=== PATIENT | male | born 1945 ===

== ENCOUNTER 2017-06-24 10:31 | Emergency (ER) | payer MEDICARE, OTHER ==
[2017-06-24 10:31] VITALS: BMI 24.3
[2017-06-24 10:36] VITALS: TEMP 98.6
--- NOTE | 2017-06-24 12:00 | C.PDOC ---
History Of Present Illness Sourav Avilez is a 71 year old male, with no past medical history, who presents to the emergency department complaining of left sided facial swelling and pain onset for x1 month. Patient states the pain is from midline to the left side of the face. He saw his PMD who recommended him to see an section leader. However, the section leader told him he had no visual problems and should visit the hospital. He denies any fever, chills, nausea, vomit or diarrhea. No further medical complaints. PMD: Dr Jv Melton Time Seen by Provider: 06/24/17 11:13 Chief Complaint (Nursing): Medical Clearance History Per: Patient History/Exam Limitations: no limitations Onset/Duration Of Symptoms: Days (x1 month) Current Symptoms Are (Timing): Still Present Pain Scale Rating Of: 5 Past Medical History Reviewed: Historical Data, Nursing Documentation, Vital Signs Vital Signs: Last Vital Signs Temp 98.6 F 06/24/17 10:36 Pulse 93 H 06/24/17 10:36 Resp 18 06/24/17 10:36 BP 162/74 H 06/24/17 10:36 Pulse Ox 97 06/24/17 13:02 - Medical History PMH: Gastritis, HTN, Hypercholesterolemia, Hypothyroidism, Parkinson's Disease Denies: Chronic Kidney Disease Surgical History: Hernia Repair Family History: States: Unknown Family Hx - Social History Hx Tobacco Use: Yes Hx Alcohol Use: No Hx Substance Use: No - Immunization History Hx Tetanus Toxoid Vaccination: No Hx Influenza Vaccination: Yes Hx Pneumococcal Vaccination: No Review Of Systems Except As Marked, All Systems Reviewed And Found Negative. Constitutional: Positive for: Other (left sided facial swelling and pain). Negative for: Fever, Chills Gastrointestinal: Negative for: Nausea, Vomiting, Diarrhea Physical Exam - Physical Exam Appears: No Acute Distress Skin: Normal Color, Warm, Dry Head: Atraumatic Eye(s): bilateral: Normal Inspection, PERRL, EOMI Neck: Normal ROM, Supple Cardiovascular: Rhythm Regular Respiratory: Normal Breath Sounds, No Accessory Muscle Use Gastrointestinal/Abdominal: Soft, No Tenderness, No Guarding, No Rebound Extremity: Normal ROM, No Pedal Edema, No Deformity, No Swelling Neurological/Psych: Oriented x3, Normal Speech, Normal Cognition, Normal Motor ( 5/5), Normal Sensation Other Neurological Findings: Facial Palsy (facial droop on left side) ED Course And Treatment O2 Sat by Pulse Oximetry: 97 (RA) Pulse Ox Interpretation: Normal - CT Scan/US CT - Head Other Rad Studies (CT/US): Read By Radiologist, Radiology Report Reviewed CT/US Interpretation: PROCEDURE: CT HEAD WITHOUT CONTRAST. HISTORY: left sided facial pain. COMPARISON: Noncontrast head CT performed 12/20/14. TECHNIQUE: Axial computed tomography images were obtained through the head/ brain without intravenous contrast. Radiation dose: Total exam DLP = 757.81 mGy-cm. This CT exam was performed using one or more of the following dose reduction techniques: Automated exposure control, adjustment of the mA and/or kV according to patient size, and/or use of iterative reconstruction technique. FINDINGS: HEMORRHAGE: No intracranial hemorrhage. BRAIN: Diffuse atrophy with prominence of the ventricles and sulci noted. No mass effect or edema. Intracranial atherosclerotic calcifications. Scattered periventricular and subcortical white matter hypodensities, which are nonspecific, but often seen with chronic microvascular ischemic disease. Please note that MRI with diffusion imaging is more sensitive in the detection of acute ischemic event. VENTRICLES: No hydrocephalus. CALVARIUM: Unremarkable. PARANASAL SINUSES: Unremarkable as visualized. No significant inflammatory changes. MASTOID AIR CELLS: Unremarkable as visualized. No inflammatory changes. OTHER FINDINGS: None. IMPRESSION: Generalized atrophy. Nonspecific white matter changes. Medical Decision Making Medical Decision Making: Initial Impression: left sided facial droop Initial Plan: --Head w/o contrast [CT] --reevaluation 12:[address] FINDINGS: HEMORRHAGE: No intracranial hemorrhage. BRAIN: Diffuse atrophy with prominence of the ventricles and sulci noted. No mass effect or edema. Intracranial atherosclerotic calcifications. Scattered periventricular and subcortical white matter hypodensities, which are nonspecific, but often seen with chronic microvascular ischemic disease. Please note that MRI with diffusion imaging is more sensitive in the detection of acute ischemic event. VENTRICLES: No hydrocephalus. CALVARIUM: Unremarkable. PARANASAL SINUSES: Unremarkable as visualized. No significant inflammatory changes. MASTOID AIR CELLS: Unremarkable as visualized. No inflammatory changes. OTHER FINDINGS: None. IMPRESSION: Generalized atrophy. Nonspecific white matter changes. Disposition Doctor Will See Patient In The: Office Counseled Patient/Family Regarding: Studies Performed, Need For Followup - Disposition Referrals: Lucho Boyd MD [Staff Provider] - Disposition Time: 14:29 Condition: STABLE Prescriptions: Ibuprofen [Motrin] 600 mg PO TID #15 tab Instructions: Munguia Palsy (ED) Forms: Gen Discharge Inst Scottish, [facility] (Scottish) - POA Present On Arrival: None - Clinical Impression Clinical Impression: Munguia's palsy - Scribe Statement Jose Antonio Bond Provider Attestation: All medical record entries made by the Scribe were at my direction and personally dictated by me. I have reviewed the chart and agree that the record accurately reflects my personal performance of the history, physical exam, medical decision making, and the department course for this patient. I have also personally directed, reviewed, and agree with the discharge instructions and disposition.
--- NOTE | 2017-06-24 12:28 | CT ---
PROCEDURE: CT HEAD WITHOUT CONTRAST. HISTORY: left sided facial pain COMPARISON: Noncontrast head CT performed 12/20/14 TECHNIQUE: Axial computed tomography images were obtained through the head/brain without intravenous contrast. Radiation dose: Total exam DLP = 757.81 mGy-cm. This CT exam was performed using one or more of the following dose reduction techniques: Automated exposure control, adjustment of the mA and/or kV according to patient size, and/or use of iterative reconstruction technique. FINDINGS: HEMORRHAGE: No intracranial hemorrhage. BRAIN: Diffuse atrophy with prominence of the ventricles and sulci noted. No mass effect or edema. Intracranial atherosclerotic calcifications. Scattered periventricular and subcortical white matter hypodensities, which are nonspecific, but often seen with chronic microvascular ischemic disease. Please note that MRI with diffusion imaging is more sensitive in the detection of acute ischemic event. VENTRICLES: No hydrocephalus. CALVARIUM: Unremarkable. PARANASAL SINUSES: Unremarkable as visualized. No significant inflammatory changes. MASTOID AIR CELLS: Unremarkable as visualized. No inflammatory changes. OTHER FINDINGS: None. IMPRESSION: Generalized atrophy. Nonspecific white matter changes.
[2017-06-24 14:43] VITALS: BP 168/77; PULSE 17; RESP 64; O2SAT 96
== END 2017-06-24 14:51 | disposition home or self-care (01) ==
LOC: C.ER 10:31
DX: G51.0 Bell's palsy (principal)

== ENCOUNTER 2017-08-25 14:10 | Emergency (ER) | payer MEDICARE, OTHER ==
[2017-08-25 14:11] VITALS: BMI 24.3
[2017-08-25 15:35] VITALS: RESP 18; TEMP 98.6; O2SAT 96
[2017-08-25 16:52] VITALS: BP 160/90; PULSE 61
--- NOTE | 2017-08-25 19:20 | C.PDOC ---
History Of Present Illness 71 y/o male presents to the ER complaining of non-productive cough,sore throat, and body aches which have been present for the past 4 days. Patient denies having any nausea and vomiting. Patient also denies any sick contacts and recent travel.Of note, patient is compliant with her medications. Chief Complaint (Nursing): Flu-like Symptoms History Per: Patient History/Exam Limitations: no limitations Current Symptoms Are (Timing): Still Present Sick Contacts (Context): None Associated Symptoms: Sore Throat, Cough. denies: Nausea, Vomiting Severity: Moderate Past Medical History Reviewed: Historical Data, Nursing Documentation, Vital Signs Vital Signs: Last Vital Signs Temp 98.6 F 08/25/17 16:35 Pulse 61 08/25/17 16:35 Resp 18 08/25/17 16:35 BP 160/90 H 08/25/17 16:35 Pulse Ox 96 08/25/17 19:24 - Medical History PMH: Gastritis, HTN, Hypercholesterolemia, Hypothyroidism, Parkinson's Disease Denies: Chronic Kidney Disease Surgical History: Hernia Repair Family History: States: No Known Family Hx - Social History Hx Tobacco Use: Yes Hx Alcohol Use: No Hx Substance Use: No - Immunization History Hx Tetanus Toxoid Vaccination: No Hx Influenza Vaccination: Yes Hx Pneumococcal Vaccination: No Review Of Systems Except As Marked, All Systems Reviewed And Found Negative. Constitutional: Positive for: Malaise ENT: Positive for: Throat Pain Respiratory: Positive for: Cough (non-productive cough) Gastrointestinal: Negative for: Nausea, Vomiting Physical Exam - Physical Exam Appears: Non-toxic, No Acute Distress Skin: Normal Color, Warm Head: Atraumatic, Normacephalic Eye(s): bilateral: Normal Inspection Ear(s): Bilateral: Normal Nose: Normal Oral Mucosa: Moist, Other (no thrush) Throat: Normal, No Erythema, No Exudate Neck: Supple Chest: Symmetrical Cardiovascular: Rhythm Regular Respiratory: Normal Breath Sounds, No Accessory Muscle Use, No Rales, No Rhonchi , No Wheezing Extremity: Normal ROM Neurological/Psych: Oriented x3, Normal Speech, Normal Motor, Normal Sensation ED Course And Treatment O2 Sat by Pulse Oximetry: 96 (RA) Pulse Ox Interpretation: Normal Progress Note: Patient discharged and told to follow up with PMD in 2-3 days. Disposition - Disposition Referrals: [facility] Angelita Knapp, [Non-Staff] - Disposition: HOME/ ROUTINE Disposition Time: 16:15 Condition: GOOD Additional Instructions: Thank you for letting us take care of you today. The emergency medical care you received today was directed at your acute symptoms. If you were prescribed any medication, please fill it and take as directed. It may take several days for your symptoms to resolve. Return to the Emergency Department if your symptoms worsen, do not improve, or if you have any other problems. Please contact your doctor or call one of the physicians/clinics you have been referred to that are listed on the Patient Visit Information form that is included in your discharge packet. Bring any paperwork you were given at discharge with you along with any medications you are taking to your follow up visit. Our treatment cannot replace ongoing medical care by a primary care provider (PCP) outside of the emergency department. Thank you for allowing the [facility] team to be part of your care today. Follow up with your doctor in 2-3 days for re-evaluation and further management. Tristin por dejarnos atenderlo santosy. La atencin mdica de emergencia que recibi hoy estaba dirigida a concha sntomas agudos. Si le prescribieron algn medicamento, llnelo y tome segn las indicaciones. Concah sntomas pueden tardar varios thornton en resolverse. Regrese al Departamento de Emergencia si concha s ntomas empeoran, no mejoran o si tiene algn otro problema. Comunquese con zarate mdico o llame a jaja de los mdicos / clnicas a los que chappell sido referido que figura en el formulario de Informacin de visita del paciente que se incluye en zarate paquete de caitlyn. Traiga todos los documentos que recibi al momento del caitlyn junto con los medicamentos que est tomando en zarate visita de seguimiento. Nuestro tratamiento no puede reemplazar la atencin mdica en curso por parte de un proveedor de atencin primaria (PCP) fuera del departamento de emergencias. Tristin por permitir que el equipo de [facility] sea parte de zarate cuidado hoy. Jimi un seguimiento con zarate mdico en 2-3 thornton para aby reevaluacin y aby administracin posterior. Instructions: Upper Respiratory Infection (ED) Forms: Gen Discharge Inst Hungarian Print Language: BENGALI - Clinical Impression Clinical Impression: Viral syndrome - Scribe Statement The provider has reviewed the documentation as recorded by the Scribe Lei Childress Provider Attestation: All medical record entries made by the Scribe were at my direction and personally dictated by me. I have reviewed the chart and agree that the record accurately reflects my personal performance of the history, physical exam, medical decision making, and the department course for this patient. I have also personally directed, reviewed, and agree with the discharge instructions and disposition.
== END 2017-08-25 16:35 | disposition home or self-care (01) ==
LOC: C.ER 14:10
DX: B34.9 Viral infection, unspecified (principal)

== ENCOUNTER 2017-08-28 10:17 | Inpatient (IN) | payer MEDICARE, OTHER ==
[2017-08-28 10:37] VITALS: BMI 25.0
[2017-08-28 13:26] LABS: BASO # 0.1 K/uL (0.0-0.2); BASO % 0.7 % (0.0-2.0); EOS # 0.1 K/uL (0.0-0.7); EOS % 1.2 % (0.0-4.0); HEMOGLOBIN 11.8 g/dL (12.0-18.0); LYMPH # 2.8 K/uL (1.0-4.3); LYMPH % 39.4 % (20.0-40.0); MEAN CORPUSCULAR HGB CONC 33.8 g/dL (33.0-37.0); MEAN PLATELET VOLUME 7.4 fL (7.2-11.7); MONO # 0.7 K/uL (0.0-0.8); NEUT # 3.4 K/uL (1.8-7.0); NEUT % 48.7 % (50.0-75.0); RBC 4.07 Mil/uL (4.40-5.90); RED CELL DISTRIBUTION WIDTH 16.1 % (11.5-14.5)
[2017-08-28 13:34] LABS: INR 1.2; PROTHROMBIN TIME 13.5 SECONDS (9.7-12.2)
[2017-08-28 13:38] LABS: WHITE BLOOD COUNT 7.1 K/uL (4.8-10.8)
[2017-08-28 13:47] LABS: ALB/GLOB RATIO 0.8 (1.0-2.1); ALBUMIN 4.1 g/dL (3.5-5.0); ALT/SGPT 13 U/L (21-72); AST/SGOT 36 U/L (17-59); BLOOD UREA NITROGEN 18 mg/dL (9-20); CALCIUM 10.2 mg/dl (8.6-10.4); GFR AFRICAN-AMERICAN 52; GFR NON-AFRICAN AMERICAN 43
--- NOTE | 2017-08-28 13:48 | CT ---
PROCEDURE: CT HEAD WITHOUT CONTRAST. HISTORY: double vision, headache COMPARISON: Noncontrast head CT performed 06/24/17 TECHNIQUE: Axial computed tomography images were obtained through the head/brain without intravenous contrast. Radiation dose: Total exam DLP = 930.34 mGy-cm. This CT exam was performed using one or more of the following dose reduction techniques: Automated exposure control, adjustment of the mA and/or kV according to patient size, and/or use of iterative reconstruction technique. FINDINGS: HEMORRHAGE: No intracranial hemorrhage. BRAIN: Diffuse atrophy with prominence of the ventricles and sulci noted. No mass effect or edema. Dense intracranial atherosclerosis. Scattered periventricular and subcortical white matter hypodensities, which are nonspecific, but often seen with chronic microvascular ischemic disease. Please note that MRI with diffusion imaging is more sensitive in the detection of acute ischemic event. VENTRICLES: No hydrocephalus. CALVARIUM: Unremarkable. PARANASAL SINUSES: Marked opacification of the left greater than right sphenoid sinuses. MASTOID AIR CELLS: Unremarkable as visualized. No inflammatory changes. OTHER FINDINGS: None. IMPRESSION: Generalized atrophy. Nonspecific white matter changes. Marked opacification of the left greater than right sphenoid sinuses. Correlate clinically for sinusitis.
[2017-08-28 13:52] LABS: CK-MB 1.46 ng/mL (0.0-3.38)
[2017-08-28 14:23] LABS: URINE BILIRUBIN NEGATIVE (NEGATIVE); URINE BLOOD NEGATIVE (NEGATIVE); URINE CLARITY Clear (Clear); URINE COLOR Yellow (YELLOW); URINE GLUCOSE (UA) NORMAL (Normal); URINE LEUKOCYTE ESTERASE NEG Leu/uL (Negative); URINE NITRATE NEGATIVE (NEGATIVE); URINE PROTEIN NEGATIVE (NEGATIVE); URINE UROBILINOGEN NORMAL mg/dL (0.2-1.0)
--- NOTE | 2017-08-28 14:47 | C.PDOC ---
History Of Present Illness 71 y/o male presents to the ER complaining of double vision which has been present for the past 2 days. Patient states that he has frontal headache and he has decreased sensation on the right side of his face.Patient reports that he was seen in [facility] 2 days ago for flu-like symptoms. Time Seen by Provider: 08/28/17 11:35 Chief Complaint (Nursing): Headache History Per: Patient History/Exam Limitations: no limitations Onset/Duration Of Symptoms: Days Current Symptoms Are (Timing): Still Present Severity: Moderate Past Medical History Reviewed: Historical Data, Nursing Documentation, Vital Signs Vital Signs: Last Vital Signs Temp 98.7 F 08/28/17 10:28 Pulse 64 08/28/17 17:30 Resp 17 08/28/17 17:30 BP 120/84 08/28/17 17:30 Pulse Ox 95 08/28/17 18:48 - Medical History PMH: Gastritis, HTN, Hypercholesterolemia, Hypothyroidism, Parkinson's Disease Denies: Chronic Kidney Disease Surgical History: Hernia Repair Family History: States: No Known Family Hx - Social History Hx Tobacco Use: Yes Hx Alcohol Use: No Hx Substance Use: No - Immunization History Hx Tetanus Toxoid Vaccination: No Hx Influenza Vaccination: Yes Hx Pneumococcal Vaccination: No Review Of Systems Except As Marked, All Systems Reviewed And Found Negative. Constitutional: Negative for: Fever, Chills Eyes: Positive for: Vision Change Neurological: Positive for: Headache Physical Exam - Physical Exam Appears: Non-toxic, No Acute Distress Skin: Normal Color, Warm Head: Atraumatic, Normacephalic Eye(s): bilateral: Normal Inspection Nose: Normal Oral Mucosa: Moist Neck: Supple Chest: Symmetrical Cardiovascular: Rhythm Regular Respiratory: Normal Breath Sounds, No Accessory Muscle Use, No Rales, No Rhonchi , No Wheezing Extremity: Normal ROM ED Course And Treatment - Laboratory Results Result Diagrams: 08/28/17 13:23 08/28/17 13:23 O2 Sat by Pulse Oximetry: 95 (RA) Pulse Ox Interpretation: Normal - Other Rad CXR X-Ray: Viewed By Me, Read By Radiologist Interpretation: HISTORY: double vision, headache. COMPARISON: Chest x-ray performed 06/13/14. TECHNIQUE: Chest, one view. FINDINGS: Examination limited by habitus. LUNGS: Mild bibasilar atelectasis/infiltrates. Please note that chest x-ray has limited sensitivity for the detection of pulmonary masses. PLEURA: No significant pleural effusion identified. No definite pneumothorax . 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 Cardiomegaly. OSSEOUS STRUCTURES: No acute osseous abnormality identified. VISUALIZED UPPER ABDOMEN: Elevation of the right hemidiaphragm. OTHER FINDINGS: None. IMPRESSION: Mild bibasilar atelectasis / infiltrates. 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 Cardiomegaly. - CT Scan/US Head CT Other Rad Studies (CT/US): Read By Radiologist CT/US Interpretation: PROCEDURE: CT HEAD WITHOUT CONTRAST. HISTORY: double vision, headache. COMPARISON: Noncontrast head CT performed 06/24/17. TECHNIQUE: Axial computed tomography images were obtained through the head/ brain without intravenous contrast. Radiation dose: Total exam DLP = 930.34 mGy-cm. This CT exam was performed using one or more of the following dose reduction techniques: Automated exposure control, adjustment of the mA and/or kV according to patient size, and/or use of iterative reconstruction technique. FINDINGS: HEMORRHAGE: No intracranial hemorrhage. BRAIN: Diffuse atrophy with prominence of the ventricles and sulci noted. No mass effect or edema. Dense intracranial atherosclerosis. Scattered periventricular and subcortical white matter hypodensities, which are nonspecific, but often seen with chronic microvascular ischemic disease. Please note that MRI with diffusion imaging is more sensitive in the detection of acute ischemic event. VENTRICLES: No hydrocephalus. CALVARIUM: Unremarkable. PARANASAL SINUSES: Marked opacification of the left greater than right sphenoid sinuses. MASTOID AIR CELLS: Unremarkable as visualized. No inflammatory changes. OTHER FINDINGS: None. IMPRESSION: Generalized atrophy. Nonspecific white matter changes. Marked opacification of the left greater than right sphenoid sinuses. Correlate clinically for sinusitis. MRI of brain Other Rad Studies (CT/US): Read By Radiologist, Radiology Report Reviewed CT/US Interpretation: EXAM: MR Head Without Intravenous Contrast. CLINICAL HISTORY: 71 years old, male; Signs and symptoms; Dizziness; Additional info: Double vision, r ptosis and facial. numbness/chappell. TECHNIQUE: Magnetic resonance images of the head/brain without intravenous contrast in multiple planes. COMPARISON: CT - HEAD W/O CONTRAST 2017-08-28 13:29. FINDINGS: Brain : No evidence of acute infarction. Mild to moderate brain volume loss. Mild periventricular and. subcortical T2 hyperintensities are nonspecific and could reflect chronic microvascular ischemic. changes. Bilateral frontal periventricular T2 hyperintensity/hyperintensities consistent with chronic. infarction(s). No hemorrhage. Ventricles: Unremarkable. No ventriculomegaly. Bones/joints: Unremarkable. Sinuses: Left sphenoid sinus air fluid levels and aerosolized secretions may reflect trauma or acute. sinusitis in the appropriate clinical scenario. Clinical correlation recommended. Right maxillary sinus. polyp. Mastoid air cells: Unremarkable as visualized. No mastoid effusion. Orbits: Unremarkable as visualized. IMPRESSION: 1. Left sphenoid sinus air fluid levels and aerosolized secretions may reflect trauma or acute sinusitis. in the appropriate clinical scenario. Clinical correlation recommended. 2. No evidence of acute infarction. MRA of brain Other Rad Studies (CT/US): Read By Radiologist, Radiology Report Reviewed CT/US Interpretation: EXAM: MR Angiography Head Without Intravenous Contrast. CLINICAL HISTORY: 71 years old, male; Signs and symptoms; Dizziness and giddiness; Additional info: Double vision, r. ptosis and facial numbness/chappell. TECHNIQUE: Magnetic resonance angiography images of the head without intravenous contrast. COMPARISON: CT - HEAD W/O CONTRAST 2017-08-28 13:29. FINDINGS: Right internal carotid artery: No acute findings. Intracranial segment is patent with no significant. stenosis. No aneurysm. Right anterior cerebral artery: Unremarkable. No occlusion or significant stenosis. No aneurysm. Right middle cerebral artery: Unremarkable. No occlusion or significant stenosis. No aneurysm. Right posterior cerebral artery: Unremarkable. No occlusion or significant stenosis. No aneurysm. Right vertebral artery: Unremarkable as visualized. Left internal carotid artery: No acute findings. Intracranial segment is patent with no significant. stenosis. No aneurysm. Left anterior cerebral artery: Unremarkable. No occlusion or significant stenosis. No aneurysm. Left middle cerebral artery: Unremarkable. No occlusion or significant stenosis. No aneurysm. Left posterior cerebral artery: Unremarkable. No occlusion or significant stenosis. No aneurysm. Left vertebral artery: Unremarkable as visualized. Basilar artery: Unremarkable. No occlusion or significant stenosis. No aneurysm. IMPRESSION: No evidence of hemodynamically significant stenosis. Thank you for allowing us to participate in the care of your patient. Dictated and Authenticated by: Barrett Mercedes MD. 5:44 PM Eastern Time ([place] & [place]) MRA neck Other Rad Studies (CT/US): Read By Radiologist, Radiology Report Reviewed CT/US Interpretation: EXAM: MR Angiography Neck Without Intravenous Contrast. CLINICAL HISTORY: 71 years old, male; Signs and symptoms; Dizziness and giddiness; Additional info: Double vision, r. ptosis and facial numbness/chappell. TECHNIQUE: Magnetic resonance angiography images of the neck without intravenous contrast. COMPARISON: No relevant prior studies available. FINDINGS: Right common carotid artery: Unremarkable. No significant stenosis. No dissection or occlusion. Right internal carotid artery: Unremarkable. Extracranial segment is patent with no significant. stenosis. No dissection or occlusion. Right external carotid artery: Unremarkable. No occlusion. Right vertebral artery: Unremarkable. No significant stenosis. No dissection or occlusion. Left common carotid artery: Unremarkable. No significant stenosis. No dissection or occlusion. Left internal carotid artery: Unremarkable. Extracranial segment is patent with no significant. stenosis. No dissection or occlusion. Left external carotid artery: Unremarkable. No occlusion. Left vertebral artery: Unremarkable. No significant stenosis. No dissection or occlusion. Soft tissues: Unremarkable as visualized. CAROTID STENOSIS REFERENCE USING NASCET CRITERIA: % ICA stenosis = (1 - narrowest ICA diameter/ diameter of distal cervical ICA) x 100. Mild - <50% stenosis. Moderate - 50-69 % stenosis. Severe - 70-94% stenosis. Near occlusion - 95-99% stenosis. Occluded - 100% stenosis. IMPRESSION: No evidence of hemodynamically significant stenosis. Thank you for allowing us to participate in the care of your patient. Dictated and Authenticated by: Barrett Mercedes MD. 08/28/2017 5:39 PM Eastern Time ([place] & [place]) Progress Note: Labs, CXR, CT-Head, and MRI ordered. case was d/w Neurologist who requested MRI and MRA of brain and MRA of head/neck. Patient was admissted to [facility] on service. CT/MRI/MRA w/o evidence of stroke. Disposition - Disposition Disposition: HOSPITALIZED Disposition Time: 16:20 Condition: FAIR - Clinical Impression Clinical Impression: CN III palsy, right eye, Headache - PA / [employer] / Resident Statement MD/DO has reviewed & agrees with the documentation as recorded. - Scribe Statement The provider has reviewed the documentation as recorded by the Anna Childress Provider Attestation All medical record entries made by the Scribe were at my direction and personally dictated by me. I have reviewed the chart and agree that the record accurately reflects my personal performance of the history, physical exam, medical decision making, and the department course for this patient. I have also personally directed, reviewed, and agree with the discharge instructions and disposition. Decision To Admit - Pt Status Changed To: Hospital Disposition Of: Observation - . Bed Request Type: Regular Patient Diagnosis: CN III palsy, right eye, Headache
--- NOTE | 2017-08-28 16:56 | RAD ---
HISTORY: double vision, headache COMPARISON: Chest x-ray performed 06/13/14 TECHNIQUE: Chest, one view. FINDINGS: Examination limited by habitus. LUNGS: Mild bibasilar atelectasis/infiltrates. Please note that chest x-ray has limited sensitivity for the detection of pulmonary masses. PLEURA: No significant pleural effusion identified. No definite pneumothorax . 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 Cardiomegaly. OSSEOUS STRUCTURES: No acute osseous abnormality identified. VISUALIZED UPPER ABDOMEN: Elevation of the right hemidiaphragm. OTHER FINDINGS: None. IMPRESSION: Mild bibasilar atelectasis/ infiltrates. 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 Cardiomegaly.
--- NOTE | 2017-08-28 17:48 | CP.PCM.CON ---
History of Present Illness - History of Present Illness History of Present Illness: PGY3 on Neurology Dr. Matos service: 71M PMHx HIV (last CD4 count of 177 was done in 2013) and Herpes zoster ophthalmicus on left forehead in 2013 presented with double vision with headache and right facial numbness since yesterday morning. Per brother who was with the patient yesterday, patient also was having trouble speaking when it happens. Brother also noticed patient's right eye looking down and out with drooping eyelid. Patient also complains of new onset weakness in his left arm as well as shaking. Patient was recently presented to ED for URI and was discharged with Zithromax and Ibuprofen. Patient denied numbness or tingling in all 4 extremities. Patient said he also follows a Neurologist and a Cytogenetic Technologist but unable to give names. Patient cannot remember his home medications or if he had any follow up with his HIV. Review of Systems - Review of Systems All systems: reviewed and no additional remarkable complaints except Past Patient History - Infectious Disease Hx of Infectious Diseases: None - Past Medical History & Family History Past Medical History?: Yes - Past Social History Smoking Status: Former Smoker - CARDIAC Hx Hypercholesterolemia: Yes Hx Hypertension: Yes - PULMONARY Hx Respiratory Disorders: No - NEUROLOGICAL Hx Parkinson's Disease: Yes - HEENT Hx HEENT Problems: No - RENAL Hx Chronic Kidney Disease: No - ENDOCRINE/METABOLIC Hx Hypothyroidism: Yes - HEMATOLOGICAL/ONCOLOGICAL Hx Blood Disorders: No - INTEGUMENTARY Hx Dermatological Problems: No - MUSCULOSKELETAL/RHEUMATOLOGICAL Hx Falls: No - GASTROINTESTINAL Hx Gastritis: Yes - GENITOURINARY/GYNECOLOGICAL Hx Genitourinary Disorders: No - PSYCHIATRIC Hx Substance Use: No - SURGICAL HISTORY Hx Surgeries: Yes Hx Cardiac Catheterization: Yes - ANESTHESIA Hx Anesthesia: Yes Hx Anesthesia Reactions: No Hx Malignant Hyperthermia: No Meds Allergies/Adverse Reactions: Allergies Allergy/AdvReac Type Severity Reaction Status Date / Time No Known Allergies Allergy Verified 08/28/17 10:36 Physical Exam - Constitutional Appears: Non-toxic, No Acute Distress - Head Exam Head Exam: ATRAUMATIC - Eye Exam Eye Exam: absent: Nystagmus, Periorbital swelling, Scleral icterus Pupil Exam: NORMAL ACCOMODATION, PERRL Additional comments: Right eye with droopy eyelid, right eye lateral and downward gaze but was able to look towards midline, up and down - Respiratory Exam Respiratory Exam: Clear to Auscultation Bilateral, NORMAL BREATHING PATTERN - Cardiovascular Exam Cardiovascular Exam: REGULAR RHYTHM, +S1, +S2 - GI/Abdominal Exam GI & Abdominal Exam: Normal Bowel Sounds, Soft - Extremities Exam Extremities exam: Negative for: pedal edema - Neurological Exam Neurological exam: Alert, Normal Gait, Oriented x3, Reflexes Normal Additional comments: left arm strength 4/5 compared to the right, mild tremor and pronator drift with left arm, left trapezius weakness compared to right when shrugging shoulder , left forehead painful sensation to touch - Psychiatric Exam Psychiatric exam: Normal Mood Results - Vital Signs Recent Vital Signs: Last Vital Signs Temp 98.7 F 08/28/17 10:28 Pulse 64 08/28/17 17:30 Resp 17 08/28/17 17:30 BP 120/84 08/28/17 17:30 Pulse Ox 97 08/28/17 17:30 - Labs Result Diagrams: 08/28/17 13:23 08/28/17 13:23 Labs: Laboratory Results - last 24 hr 08/28/17 08/28/17 08/28/17 13:23 13:23 13:23 WBC 7.1 D RBC 4.07 L Hgb 11.8 L Hct 35.0 MCV 86.0 D MCH 29.0 MCHC 33.8 RDW 16.1 H Plt Count 271 D MPV 7.4 Neut % (Auto) 48.7 L Lymph % (Auto) 39.4 [place] % (Auto) 10.0 Eos % (Auto) 1.2 Baso % (Auto) 0.7 Neut # (Auto) 3.4 Lymph # (Auto) 2.8 [place] # (Auto) 0.7 Eos # (Auto) 0.1 Baso # (Auto) 0.1 PT 13.5 H INR 1.2 APTT 33 Sodium 139 Potassium 4.9 Chloride 101 Carbon Dioxide 25 Anion Gap 18 BUN 18 Creatinine 1.6 H Est GFR ( Amer) 52 Est GFR (Non-Af Amer) 43 Random Glucose 102 Calcium 10.2 Total Bilirubin 0.7 AST 36 ALT 13 L D Alkaline Phosphatase 71 Total Creatine Kinase 138 CK-MB (Mass) 1.46 Troponin I < 0.0120 Total Protein 9.0 H Albumin 4.1 Globulin 5.0 H Albumin/Globulin Ratio 0.8 L Urine Color Urine Clarity Urine pH Ur Specific [place] Urine Protein Urine Glucose (UA) Urine Ketones Urine Blood Urine Nitrate Urine Bilirubin Urine Urobilinogen Ur Leukocyte Esterase Urine WBC (Auto) Urine RBC (Auto) 08/28/17 14:06 WBC RBC Hgb Hct MCV MCH MCHC RDW Plt Count MPV Neut % (Auto) Lymph % (Auto) [place] % (Auto) Eos % (Auto) Baso % (Auto) Neut # (Auto) Lymph # (Auto) [place] # (Auto) Eos # (Auto) Baso # (Auto) PT INR APTT Sodium Potassium Chloride Carbon Dioxide Anion Gap BUN Creatinine Est GFR ( Amer) Est GFR (Non-Af Amer) Random Glucose Calcium Total Bilirubin AST ALT Alkaline Phosphatase Total Creatine Kinase CK-MB (Mass) Troponin I Total Protein Albumin Globulin Albumin/Globulin Ratio Urine Color Yellow Urine Clarity Clear Urine pH 5.0 Ur Specific [place] 1.011 Urine Protein Negative Urine Glucose (UA) Normal Urine Ketones Negative Urine Blood Negative Urine Nitrate Negative Urine Bilirubin Negative Urine Urobilinogen Normal Ur Leukocyte Esterase Neg Urine WBC (Auto) 1 Urine RBC (Auto) 5 H Assessment & Plan (1) CN III palsy, right eye Assessment and Plan: - Possible incomplete palsy vs other etiologies. - CT head negative for acute etiologies. - F/U Vitamin, lipid, thyroid, RPR levels. - F/U MRI brain and MRA head/neck results. - Other management as per primary team. D/W attending Dr. Matos. Status: Acute Priority: High
[2017-08-28] MEDS: Latanoprost 2.5 ml Opht Soln OD SCH (18:28)
--- NOTE | 2017-08-28 18:50 | CP.PCM.CON ---
<Hannah Banda - Last Filed: 08/29/17 06:48> Meds Home Medications: Home Medication List Medication Instructions Recorded Confirmed Type Acyclovir [Zovirax] 800 mg PO BID #30 tab 09/02/17 Rx Darunavir Ethanolate [Prezista] 600 mg PO DAILY #30 tab 09/02/17 Rx Dolutegravir Sodium [Tivicay] 50 mg PO DAILY tab 09/02/17 Rx Gabapentin [Neurontin] 900 mg PO HS #30 tab 09/02/17 Rx Magnesium Oxide [Mag-Ox] 400 mg PO BID tab 09/02/17 Rx Ritonavir [Norvir] 100 mg PO DAILY #30 cap 09/02/17 Rx Sulfamethoxazole/Trimethoprim 1 tab PO Q12H #0 tab 09/02/17 Rx [Bactrim DS Tab] hydroCHLOROthiazide [Hydrodiuril] 25 mg PO DAILY tab 09/02/17 Rx Allergies/Adverse Reactions: Allergies Allergy/AdvReac Type Severity Reaction Status Date / Time No Known Allergies Allergy Verified 08/28/17 10:36 - Medications Medications: Current Medications Atenolol (Tenormin) 25 mg PO DAILY [facility] Darunavir (Prezista) 600 mg PO DAILY [facility] Dolutegravir Sodium (Tivicay) 50 mg PO DAILY [facility] Last Admin: 08/28/17 21:53 Dose: 50 mg Gabapentin (Neurontin) 600 mg PO HS [facility] Last Admin: 08/28/17 21:48 Dose: 600 mg Hydrochlorothiazide (Hydrodiuril) 25 mg PO DAILY [facility] Acyclovir 500 mg/ Sodium (Chloride) 100 mls @ 100 mls/hr IV Q12H [facility] Last Admin: 08/28/17 23:26 Dose: 100 mls/hr Ceftriaxone Sodium 1 gm/ (Sodium Chloride) 100 mls @ 100 mls/hr IVPB Q12H [facility] Last Admin: 08/28/17 21:52 Dose: 100 mls/hr Latanoprost (Xalatan Opht) 1 ml OD BID [facility] Last Admin: 08/28/17 18:28 Dose: 1 ml Levothyroxine Sodium (Synthroid) 50 mcg PO DAILY@0630 [facility] Last Admin: 08/29/17 06:16 Dose: 50 mcg Losartan Potassium (Cozaar) 100 mg PO DAILY [facility] Pantoprazole Sodium (Protonix Ec Tab) 40 mg PO DAILY [facility] Pneumococcal Polyvalent Vaccine (Pneumovax 23 Vaccine) 0.5 ml IM .ONCE ONE Stop: 08/30/17 10:01 Ritonavir (Norvir) 100 mg PO DAILY [facility] Rosuvastatin Calcium (Crestor) 10 mg PO HS [facility] Last Admin: 08/28/17 21:48 Dose: 10 mg Trimethoprim/Sulfamethoxazole (Bactrim Ds Tab) 1 tab PO Q12H [facility] Last Admin: 08/29/17 06:16 Dose: 1 tab Results - Vital Signs Recent Vital Signs: Last Vital Signs Temp 98 F 08/29/17 00:02 Pulse 65 08/29/17 00:02 Resp 20 08/29/17 00:02 BP 162/69 H 08/29/17 00:02 Pulse Ox 97 08/29/17 00:02 - Labs Result Diagrams: 08/28/17 13:23 08/28/17 13:23 Labs: Laboratory Results - last 24 hr 08/28/17 08/28/17 08/28/17 13:23 13:23 13:23 WBC 7.1 D RBC 4.07 L Hgb 11.8 L Hct 35.0 MCV 86.0 D MCH 29.0 MCHC 33.8 RDW 16.1 H Plt Count 271 D MPV 7.4 Neut % (Auto) 48.7 L Lymph % (Auto) 39.4 [place] % (Auto) 10.0 Eos % (Auto) 1.2 Baso % (Auto) 0.7 Neut # (Auto) 3.4 Lymph # (Auto) 2.8 [place] # (Auto) 0.7 Eos # (Auto) 0.1 Baso # (Auto) 0.1 PT 13.5 H INR 1.2 APTT 33 Sodium 139 Potassium 4.9 Chloride 101 Carbon Dioxide 25 Anion Gap 18 BUN 18 Creatinine 1.6 H Est GFR ( Amer) 52 Est GFR (Non-Af Amer) 43 Random Glucose 102 Calcium 10.2 Total Bilirubin 0.7 AST 36 ALT 13 L D Alkaline Phosphatase 71 Total Creatine Kinase 138 CK-MB (Mass) 1.46 Troponin I < 0.0120 Total Protein 9.0 H Albumin 4.1 Globulin 5.0 H Albumin/Globulin Ratio 0.8 L Urine Color Urine Clarity Urine pH Ur Specific [place] Urine Protein Urine Glucose (UA) Urine Ketones Urine Blood Urine Nitrate Urine Bilirubin Urine Urobilinogen Ur Leukocyte Esterase Urine WBC (Auto) Urine RBC (Auto) Influenza Typ A,B (EIA) 08/28/17 08/28/17 14:06 22:57 WBC RBC Hgb Hct MCV MCH MCHC RDW Plt Count MPV Neut % (Auto) Lymph % (Auto) [place] % (Auto) Eos % (Auto) Baso % (Auto) Neut # (Auto) Lymph # (Auto) [place] # (Auto) Eos # (Auto) Baso # (Auto) PT INR APTT Sodium Potassium Chloride Carbon Dioxide Anion Gap BUN Creatinine Est GFR ( Amer) Est GFR (Non-Af Amer) Random Glucose Calcium Total Bilirubin AST ALT Alkaline Phosphatase Total Creatine Kinase CK-MB (Mass) Troponin I Total Protein Albumin Globulin Albumin/Globulin Ratio Urine Color Yellow Urine Clarity Clear Urine pH 5.0 Ur Specific [place] 1.011 Urine Protein Negative Urine Glucose (UA) Normal Urine Ketones Negative Urine Blood Negative Urine Nitrate Negative Urine Bilirubin Negative Urine Urobilinogen Normal Ur Leukocyte Esterase Neg Urine WBC (Auto) 1 Urine RBC (Auto) 5 H Influenza Typ A,B (EIA) Negative for flu a/b <Caio Franco - Last Filed: 09/04/17 17:35> History of Present Illness - History of Present Illness History of Present Illness: presents with double vision and headache no meningial signs + III nerve palsy right side has ? infiltrates on CXR +HIV T cells unknown iv rx started for pneumonia await MRI report r/o malignancy Review of Systems - Constitutional Constitutional: As Per HPI - EENT Eyes: As Per HPI, Diplopia Ears: absent: As Per HPI, Decreased Hearing, Ear Discharge, Ear Pain, Tinnitus, Abnormal Hearing, Disequilibrium, Dizziness, Other Nose/Mouth/Throat: absent: As Per HPI, Epistaxis, Nasal Congestion, Nasal Discharge, Nasal Obstruction, Nasal Trauma, Nose Pain, Post Nasal Drip, Sinus Pain, Sinus Pressure, Bleeding Gums, Change in Voice, Dental Pain, Dry Mouth, Dysphagia, Halitosis, Hoarsness, Lip Swelling, Mouth Lesions, Mouth Pain, Odynophagia, Sore Throat, Throat Swelling, Tongue Swelling, Facial Pain, Neck Pain, Neck Mass, Other - Cardiovascular Cardiovascular: absent: As Per HPI, Acrocyanosis, Chest Pain, Chest Pain at Rest , Chest Pain with Activity, Claudication, Diaphoresis, Dyspnea, Dyspnea on Exertion, Edema, Irregular Heart Rhythm, Pain Radiating to Arm/Neck/Jaw, Leg Edema, Leg Ulcers, Lightheadedness, Orthopnea, Palpitations, Paroxysmal Nocturnal Dyspnea, Pedal Edema, Radiating Pain, Rapid Heart Rate, Slow Heart Rate, Syncope, Other - Gastrointestinal Gastrointestinal: absent: As Per HPI, Abdominal Pain, Belching, Bloating, Change in Bowel Habits, Change in Stool Character, Coffee Ground Emesis, Constipation, Cramping, Diarrhea, Dyspepsia, Dysphagia, Early Satiety, Excessive Flatus, Fecal Incontinence, Heartburn, Hematemesis, Hematochezia, Loose Stools, Melena, Nausea, Odynophagia, Temesmus, Vomiting, Other - Genitourinary Genitourinary: absent: As Per HPI, Change in Urinary Stream, Difficulty Urinating, Dysuria, Flank Pain, Hematuria, Pyuria, Nocturia, Urinary Incontinence, Urinary Frequency, Urinary Hesitance, Urinary Urgency, Voiding Freq/Small Amts, Freq UTI, Hx Renal/Bladder Calculi, Hx /Renal Surgery, Bladder Distension, Other - Musculoskeletal Musculoskeletal: absent: As Per HPI, Abnormal Gait, Arthralgias, Atrophy, Back Pain, Deformity, Joint Swelling, Limited Range of Motion, Loss of Height, Muscle Cramps, Muscle Weakness, Myalgias, Neck Pain, Numbness, Radiating Pain into Limb, Stiffness, Tingling, Other - Integumentary Integumentary: absent: As Per HPI, Acne, Alopecia, Bleeding Lesions, Change in Hair, Change in Nails, Change in Pigmentation, Changing Lesions, Dry Skin, Erythema, Furuncle, Hirsutism, Lesions, New Lesions, Non-Healing Lesions, Photosensitivity, Pruritus, Rash, Skin Pain, Skin Ulcer, Sores, Striae, Swelling , Unusual Bruising, Wounds, Jaundice, Other - Neurological Neurological: As Per HPI - Psychiatric Psychiatric: absent: As Per HPI, Abnormal Sleep Pattern, Anhedonia, Anxiety, Auditory Hallucinations, Behavioral Changes, Change in Appetite, Change in Libido, Confusion, Depression, Difficulty Concentrating, Hallucinations, Homicidal Ideation, Hopelessness, Irritability, Memory Loss, Mood Swings, Panic Attacks, Paranoia, Suicidal Ideation, Visual Hallucinations, Tactile Hallucinations, Other - Endocrine Endocrine: absent: As Per HPI, Change in Body Appearance, Change in Libido, Cold Intolorance, Deepening of Voice, Excessive Sweating, Fatigue, Flushing, Heat Intolorance, Increase in Ring/Shoe/Hat Size, Palpitations, Polydipsia, Polyphagia, Polyuria, Other - Hematologic/Lymphatic Hematologic: absent: As Per HPI, Easy Bleeding, Easy Bruising, Lymphadenopathy, Other Past Patient History - Infectious Disease Hx of Infectious Diseases: None - Past Medical History & Family History Past Medical History?: Yes - Past Social History Smoking Status: Former Smoker - CARDIAC Hx Hypercholesterolemia: Yes Hx Hypertension: Yes - PULMONARY Hx Respiratory Disorders: No - NEUROLOGICAL Hx Parkinson's Disease: Yes - HEENT Hx HEENT Problems: No - RENAL Hx Chronic Kidney Disease: No - ENDOCRINE/METABOLIC Hx Hypothyroidism: Yes - HEMATOLOGICAL/ONCOLOGICAL Hx Blood Disorders: No - INTEGUMENTARY Hx Dermatological Problems: No - MUSCULOSKELETAL/RHEUMATOLOGICAL Hx Falls: No - GASTROINTESTINAL Hx Gastritis: Yes - GENITOURINARY/GYNECOLOGICAL Hx Genitourinary Disorders: No - PSYCHIATRIC Hx Substance Use: No - SURGICAL HISTORY Hx Surgeries: Yes Hx Cardiac Catheterization: Yes - ANESTHESIA Hx Anesthesia: Yes Hx Anesthesia Reactions: No Hx Malignant Hyperthermia: No Meds - Medications Medications: Current Medications Atenolol (Tenormin) 25 mg PO DAILY [facility] Darunavir (Prezista) 600 mg PO DAILY [facility] Dolutegravir Sodium (Tivicay) 50 mg PO ONCE [facility] Gabapentin (Neurontin) 600 mg PO HS [facility] Hydrochlorothiazide (Hydrodiuril) 25 mg PO DAILY [facility] Ceftriaxone Sodium 2 gm/ (Sodium Chloride) 100 mls @ 100 mls/hr IVPB Q12H [facility] Acyclovir 500 mg/ Sodium (Chloride) 100 mls @ 100 mls/hr IV Q12H [facility] Latanoprost (Xalatan Opht) 1 ml OD BID [facility] Last Admin: 08/28/17 18:28 Dose: 1 ml Levothyroxine Sodium (Synthroid) 50 mcg PO DAILY@0630 [facility] Losartan Potassium (Cozaar) 100 mg PO DAILY [facility] Pantoprazole Sodium (Protonix Ec Tab) 40 mg PO DAILY [facility] Ritonavir (Norvir) 100 mg PO DAILY [facility] Rosuvastatin Calcium (Crestor) 10 mg PO HS [facility] Trimethoprim/Sulfamethoxazole (Bactrim Ds Tab) 1 tab PO Q12H [facility] Physical Exam - Constitutional Appears: No Acute Distress, Chronically Ill - Head Exam Head Exam: NORMAL INSPECTION - Eye Exam Eye Exam: absent: Conjunctival injection, Periorbital tenderness, Scleral icterus Pupil Exam: absent: NORMAL ACCOMODATION - ENT Exam ENT Exam: Mucous Membranes Dry - Neck Exam Neck exam: Negative for: Lymphadenopathy - Respiratory Exam Respiratory Exam: Decreased Breath Sounds, Prolonged Expiratory Phase, Rales, Rhonchi - Cardiovascular Exam Cardiovascular Exam: REGULAR RHYTHM, +S1, +S2 - GI/Abdominal Exam GI & Abdominal Exam: Diminished Bowel Sounds, Soft. absent: Tenderness - Rectal Exam Rectal Exam: Deferred - Exam Exam: NORMAL INSPECTION - Extremities Exam Extremities exam: Positive for: pedal pulses present. Negative for: calf tenderness, pedal edema, tenderness - Back Exam Back exam: absent: CVA tenderness (L), CVA tenderness (R) - Neurological Exam Neurological exam: Alert, Oriented x3, Reflexes Normal - Psychiatric Exam Psychiatric exam: Depressed - Skin Skin Exam: Dry Results - Vital Signs Recent Vital Signs: Last Vital Signs Temp 98.7 F 08/28/17 10:28 Pulse 64 08/28/17 17:30 Resp 17 08/28/17 17:30 BP 120/84 08/28/17 17:30 Pulse Ox 95 08/28/17 18:48 - Labs Result Diagrams: 08/28/17 13:23 09/01/17 11:49 Labs: Laboratory Results - last 24 hr 08/28/17 08/28/17 08/28/17 13:23 13:23 13:23 WBC 7.1 D RBC 4.07 L Hgb 11.8 L Hct 35.0 MCV 86.0 D MCH 29.0 MCHC 33.8 RDW 16.1 H Plt Count 271 D MPV 7.4 Neut % (Auto) 48.7 L Lymph % (Auto) 39.4 [place] % (Auto) 10.0 Eos % (Auto) 1.2 Baso % (Auto) 0.7 Neut # (Auto) 3.4 Lymph # (Auto) 2.8 [place] # (Auto) 0.7 Eos # (Auto) 0.1 Baso # (Auto) 0.1 PT 13.5 H INR 1.2 APTT 33 Sodium 139 Potassium 4.9 Chloride 101 Carbon Dioxide 25 Anion Gap 18 BUN 18 Creatinine 1.6 H Est GFR ( Amer) 52 Est GFR (Non-Af Amer) 43 Random Glucose 102 Calcium 10.2 Total Bilirubin 0.7 AST 36 ALT 13 L D Alkaline Phosphatase 71 Total Creatine Kinase 138 CK-MB (Mass) 1.46 Troponin I < 0.0120 Total Protein 9.0 H Albumin 4.1 Globulin 5.0 H Albumin/Globulin Ratio 0.8 L Urine Color Urine Clarity Urine pH Ur Specific [place] Urine Protein Urine Glucose (UA) Urine Ketones Urine Blood Urine Nitrate Urine Bilirubin Urine Urobilinogen Ur Leukocyte Esterase Urine WBC (Auto) Urine RBC (Auto) 08/28/17 14:06 WBC RBC Hgb Hct MCV MCH MCHC RDW Plt Count MPV Neut % (Auto) Lymph % (Auto) [place] % (Auto) Eos % (Auto) Baso % (Auto) Neut # (Auto) Lymph # (Auto) [place] # (Auto) Eos # (Auto) Baso # (Auto) PT INR APTT Sodium Potassium Chloride Carbon Dioxide Anion Gap BUN Creatinine Est GFR ( Amer) Est GFR (Non-Af Amer) Random Glucose Calcium Total Bilirubin AST ALT Alkaline Phosphatase Total Creatine Kinase CK-MB (Mass) Troponin I Total Protein Albumin Globulin Albumin/Globulin Ratio Urine Color Yellow Urine Clarity Clear Urine pH 5.0 Ur Specific [place] 1.011 Urine Protein Negative Urine Glucose (UA) Normal Urine Ketones Negative Urine Blood Negative Urine Nitrate Negative Urine Bilirubin Negative Urine Urobilinogen Normal Ur Leukocyte Esterase Neg Urine WBC (Auto) 1 Urine RBC (Auto) 5 H Assessment & Plan (1) Pneumonia Status: Acute (2) CN III palsy, right eye Status: Acute Priority: High (3) Facial pain syndrome Status: Acute (4) HIV (human immunodeficiency virus infection) Status: Acute (5) Post herpetic neuralgia Status: Acute (6) Viral syndrome Status: Acute - Assessment and Plan (Free Text) Assessment: neuro on board r/o acute cva r/o demyelinating process cranial nerve palsy pneumonia in setting of HIV awit T cells and viral load cont antivirals start prophylaxis
[2017-08-28] MEDS: Tmp-Smz 800 mg-160 mg DS Tab PO SCH (21:48)
[2017-08-28] MEDS: Acyclovir 500 MG in Sodium Chloride 0.9% 100 ML IV SCH (23:26)
[2017-08-29] MEDS: Tmp-Smz 800 mg-160 mg DS Tab PO SCH ×2 (06:16→18:59)
[2017-08-29] MEDS: Levothyroxine 50 MCG TAB PO SCH (06:16)
[2017-08-29] MEDS: Magnesium Sulfate 1 gm in D5W 1 GM/100 ML BAG IVPB SCH (07:52)
[2017-08-29 08:46] LABS: HDL CHOLESTEROL 16 mg/dL (30-70)
[2017-08-29 08:56] LABS: LDL CHOLESTEROL 31 mg/dL (0-129)
[2017-08-29 09:58] LABS: FOLATE > 20.0 ng/mL
[2017-08-29] MEDS: Pantoprazole 40 mg EC Tab PO SCH (10:27)
--- NOTE | 2017-08-29 10:37 | MRI ---
PROCEDURE: MRI of the brain dated 08/28/2017 HISTORY: Double vision, right-sided ptosis and facial numbness/ZHU COMPARISON: Comparison made with prior CT scan of the brain dated 08/28/2017. . Correlation also made with concurrent MRA brain. TECHNIQUE: Multiplanar, multisequence MR images of the brain were obtained without intravenous contrast enhancement. FINDINGS: HEMORRHAGE: No acute parenchymal, subarachnoid or extra-axial hemorrhage. No hemosiderin deposition is identified on gradient echo weighted sequence. DWI: No evidence of an acute or early subacute infarction seen on diffusion imaging. BRAIN PARENCHYMA: Mild diffuse/ confluent chronic white matter ischemic changes seen extending peripherally into the deep and to a lesser degree subcortical white matter both cerebral hemispheres. Multiple of small chronic appearing lacunar type infarcts also seen scattered about the deep and subcortical white matter. None of these changes exhibit restricted diffusion. Note however that there does appear to be exuberant dilated perivascular spaces within the deep and subcortical white matter and to a lesser degree both basal nuclei. Such findings have been seen and described in cases of vascular dementia. . Moderate to fairly significant generalized volume loss evidenced by disproportionate VENTRICLES: No obstructive hydrocephalus. CRANIUM: Unremarkable. ORBITS: Changes of bilateral cataract surgery again noted. PARANASAL SINUSES/MASTOIDS: Medium-sized mucous retention cyst right maxillary antrum. There is also near complete opacification of the sphenoid sinus. Minor mucosal thickening within several ethmoid air cells. VASCULAR SYSTEM: Visualized major vascular flow voids at skull base patent. OTHER FINDINGS: None. IMPRESSION: No acute intracranial hemorrhage. Mild moderate chronic white matter ischemic changes. Moderate to fairly significant generalized volume loss. See above discussion for additional details and findings.
--- NOTE | 2017-08-29 10:43 | MRI ---
PROCEDURE: MR Angiography of the neck without contrast HISTORY: Double vision, right-sided ptosis and facial numbness/ZHU COMPARISON: None available. TECHNIQUE: 3D [id number] angiography of the neck was performed. Rotating maximum intensity projection images of the cervical carotid and vertebral arteries were generated. The origins of the common carotid arteries were not visualized, which is a limitation inherent to the non-contrast time of flight technique. FINDINGS: RIGHT CAROTID ARTERIES: Common Carotid Artery: Normal. Carotid Bifurcation: Normal. Internal Carotid Artery:Normal. External Carotid Artery (proximal branches): Normal. LEFT CAROTID ARTERIES: Common Carotid Artery: Normal. Carotid Bifurcation: Normal. Internal Carotid Artery:Normal. External Carotid Artery (proximal branches): Normal. VERTEBRAL ARTERIES: Right Vertebral Artery: Right vertebral artery is quite tortuous. Left Vertebral Artery: Normal. OTHER FINDINGS: None. IMPRESSION: Normal MR Angiography of the neck.
--- NOTE | 2017-08-29 11:08 | MRI ---
PROCEDURE: Magnetic Resonance Angiography Brain HISTORY: Double vision. Right ptosis and facial numbness/ZHU COMPARISON: None available. TECHNIQUE: 3D time of flight MR angiography of the intracranial arteries was performed. Rotating maximum intensity projection images were generated. FINDINGS: INTERNAL CAROTID ARTERIES: [id number] narrowing left distal internal carotid artery as it enters the left petrous canal. ,. There is also minor narrowing of the distal right internal carotid artery as it enters a right petrous canal. The cavernous and supraclinoid segments are bilaterally widely patient. ANTERIOR CEREBRAL ARTERIES: Unremarkable. A1 and A2 segments are widely patent. Smaller distal branches unremarkable, as visualized. MIDDLE CEREBRAL ARTERIES: Unremarkable. M1 and M2 segments are widely patent. Perisylvian branches grossly symmetric. POSTERIOR CIRCULATION: Basilar Artery: Unremarkable. Distal Vertebral Arteries: Unremarkable. Posterior Cerebral Arteries: Unremarkable. Posterior Inferior Cerebellar Arteries: Unremarkable. ANEURYSM/ VASCULAR MALFORMATIONS: No evidence of large aneurysm nor vascular malformation. OTHER FINDINGS: None. IMPRESSION: There is irregularity [id number] narrowing of the distal left internal carotid artery just as it enters the left petrous canal. . There is minor narrowing of the distal right internal carotid artery as it enters the right petrous canal No evidence of large aneurysm nor vascular malformation.
[2017-08-29] MEDS: Latanoprost 2.5 ml Opht Soln OD SCH ×2 (11:16→21:31)
[2017-08-29] MEDS: Acyclovir 500 MG in Sodium Chloride 0.9% 100 ML IV SCH ×2 (12:11→21:32)
--- NOTE | 2017-08-29 15:04 | CP.PCM.PN ---
Subjective - Date & Time of Evaluation Date of Evaluation: 08/29/17 Time of Evaluation: 15:01 - Subjective Subjective: PGY 2 progress note for neurology, Dr. Matos Pt seen and examined at bedside. No acute events overnight. Pt still complaining of left upper face pain and tenderness. Patient still has double vision and and left eye proptosis and paralysis. Pt denies having any dizziness , CP, SOB, abd pain, N/V/D/C, focal weakness. Objective - Vital Signs/Intake and Output Vital Signs (last 24 hours): Temp Pulse Resp BP Pulse Ox 98.8 F 87 20 97/63 L 94 L 08/29/17 08:21 08/29/17 08:21 08/29/17 08:21 08/29/17 08:21 08/29/17 11:58 Intake and Output: 08/29/17 08/29/17 06:59 18:59 Intake Total 250 1140 Output Total 1750 Balance 250 -610 - Medications Medications: Current Medications Atenolol (Tenormin) 25 mg PO DAILY [facility] Last Admin: 08/29/17 10:27 Dose: 25 mg Darunavir (Prezista) 600 mg PO DAILY [facility] Last Admin: 08/29/17 10:27 Dose: 600 mg Dolutegravir Sodium (Tivicay) 50 mg PO DAILY [facility] Last Admin: 08/29/17 11:13 Dose: 50 mg Gabapentin (Neurontin) 600 mg PO HS [facility] Last Admin: 08/28/17 21:48 Dose: 600 mg Heparin Sodium (Porcine) (Heparin) 5,000 units SC Q12 [facility] Last Admin: 08/29/17 10:30 Dose: 5,000 units Hydrochlorothiazide (Hydrodiuril) 25 mg PO DAILY [facility] Last Admin: 08/29/17 10:27 Dose: 25 mg Acyclovir 500 mg/ Sodium (Chloride) 100 mls @ 100 mls/hr IV Q12H [facility] Last Admin: 08/29/17 12:11 Dose: 100 mls/hr Ceftriaxone Sodium 1 gm/ (Sodium Chloride) 100 mls @ 100 mls/hr IVPB Q12H [facility] Last Admin: 08/29/17 07:50 Dose: 100 mls/hr Latanoprost (Xalatan Opht) 1 ml OD BID [facility] Last Admin: 08/29/17 11:16 Dose: Not Given Levothyroxine Sodium (Synthroid) 50 mcg PO DAILY@0630 [facility] Last Admin: 08/29/17 06:16 Dose: 50 mcg Losartan Potassium (Cozaar) 100 mg PO DAILY [facility] Last Admin: 08/29/17 10:27 Dose: 100 mg Pantoprazole Sodium (Protonix Ec Tab) 40 mg PO DAILY [facility] Last Admin: 08/29/17 10:27 Dose: 40 mg Pneumococcal Polyvalent Vaccine (Pneumovax 23 Vaccine) 0.5 ml IM .ONCE ONE Stop: 08/30/17 10:01 Ritonavir (Norvir) 100 mg PO DAILY [facility] Last Admin: 08/29/17 10:27 Dose: 100 mg Rosuvastatin Calcium (Crestor) 10 mg PO HS [facility] Last Admin: 08/28/17 21:48 Dose: 10 mg Trimethoprim/Sulfamethoxazole (Bactrim Ds Tab) 1 tab PO Q12H [facility] Last Admin: 08/29/17 06:16 Dose: 1 tab - Labs Labs: 08/28/17 13:23 08/28/17 13:23 PT 13.5 SECONDS (9.7-12.2) H 08/28/17 13:23 INR 1.2 08/28/17 13:23 APTT 33 SECONDS (21-34) 08/28/17 13:23 - Constitutional Appears: Non-toxic, No Acute Distress - Head Exam Head Exam: ATRAUMATIC - ENT Exam ENT Exam: Mucous Membranes Moist - Respiratory Exam Respiratory Exam: Clear to Ausculation Bilateral. absent: Accessory Muscle Use , Rales, Rhonchi, Wheezes - Cardiovascular Exam Cardiovascular Exam: REGULAR RHYTHM, +S1, +S2. absent: Gallop, Rubs, Murmur - GI/Abdominal Exam GI & Abdominal Exam: Soft, Normal Bowel Sounds. absent: Distended, Firm, Guarding, Rigid, Tenderness, Organomegaly - Extremities Exam Extremities Exam: absent: Pedal Edema, Tenderness - Neurological Exam Neurological Exam: Alert, Awake, CN II-XII Intact, Oriented x3 Neuro motor strength exam: Left Upper Extremity: 4, Right Upper Extremity: 5, Left Lower Extremity: 4, Right Lower Extremity: 5 Additional comments: right eye ptosis and outward and down rotation of eye. 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 Pt also complaining of headache and orbital pain. 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 infection - Will check CTA of brain with contrast - Will give IV hydration 100 cc NS to improve Cr - Proptosis of eye maybe due to increase ICP. Will give Decadron 10 mg IVP q8 - ID consulted for HIV - Brain MRI shows no intracranial hemorrhage. Mild-mod chronic white matter ischemic changes. Mod-significant volume loss - Head CT showed B/L narrowing of distal internal carotid arteries as it enters petrous canal - Neck MRI: normal - HIV and PRP tests results pending Case will be discussed with attending, Dr. Matos
[2017-08-29] MEDS: Sodium Chloride 0.9% 1,000 ML IV SCH (16:20)
--- NOTE | 2017-08-29 18:10 | CP.PCM.PN ---
Subjective - Date & Time of Evaluation Date of Evaluation: 08/29/17 Time of Evaluation: 08:00 - Subjective Subjective: Pt still complaining of left upper face pain and tenderness. Patient still has double vision denies fever Objective - Vital Signs/Intake and Output Vital Signs (last 24 hours): Temp Pulse Resp BP Pulse Ox 98.5 F 70 20 126/72 95 08/29/17 16:29 08/29/17 16:29 08/29/17 16:29 08/29/17 16:29 08/29/17 16:29 Intake and Output: 08/29/17 08/29/17 06:59 18:59 Intake Total 250 1140 Output Total 1750 Balance 250 -610 - Medications Medications: Current Medications Atenolol (Tenormin) 25 mg PO DAILY [facility] Last Admin: 08/29/17 10:27 Dose: 25 mg Darunavir (Prezista) 600 mg PO DAILY [facility] Last Admin: 08/29/17 10:27 Dose: 600 mg Dexamethasone (Decadron Inj) 10 mg IVP Q8 [facility] Dolutegravir Sodium (Tivicay) 50 mg PO DAILY [facility] Last Admin: 08/29/17 11:13 Dose: 50 mg Gabapentin (Neurontin) 600 mg PO HS [facility] Last Admin: 08/28/17 21:48 Dose: 600 mg Heparin Sodium (Porcine) (Heparin) 5,000 units SC Q12 [facility] Last Admin: 08/29/17 10:30 Dose: 5,000 units Hydrochlorothiazide (Hydrodiuril) 25 mg PO DAILY [facility] Last Admin: 08/29/17 10:27 Dose: 25 mg Acyclovir 500 mg/ Sodium (Chloride) 100 mls @ 100 mls/hr IV Q12H [facility] Last Admin: 08/29/17 12:11 Dose: 100 mls/hr Ceftriaxone Sodium 1 gm/ (Sodium Chloride) 100 mls @ 100 mls/hr IVPB Q12H [facility] Last Admin: 08/29/17 07:50 Dose: 100 mls/hr Sodium Chloride (Sodium Chloride 0.9%) 1,000 mls @ 100 mls/hr IV .Q10H [facility] Last Admin: 08/29/17 16:20 Dose: 100 mls/hr Latanoprost (Xalatan Opht) 1 ml OD BID [facility] Last Admin: 02/16/18 11:16 Dose: Not Given Latanoprost (Xalatan Opht) 0 ml OD [facility] Levothyroxine Sodium (Synthroid) 50 mcg PO DAILY@0630 [facility] Last Admin: 08/29/17 06:16 Dose: 50 mcg Losartan Potassium (Cozaar) 100 mg PO DAILY [facility] Last Admin: 08/29/17 10:27 Dose: 100 mg Pantoprazole Sodium (Protonix Ec Tab) 40 mg PO DAILY [facility] Last Admin: 08/29/17 10:27 Dose: 40 mg Pneumococcal Polyvalent Vaccine (Pneumovax 23 Vaccine) 0.5 ml IM .ONCE ONE Stop: 08/30/17 10:01 Ritonavir (Norvir) 100 mg PO DAILY [facility] Last Admin: 08/29/17 10:27 Dose: 100 mg Rosuvastatin Calcium (Crestor) 10 mg PO HS [facility] Last Admin: 08/28/17 21:48 Dose: 10 mg Trimethoprim/Sulfamethoxazole (Bactrim Ds Tab) 1 tab PO Q12H [facility] Last Admin: 08/29/17 06:16 Dose: 1 tab - Labs Labs: 08/28/17 13:23 08/28/17 13:23 PT 13.5 SECONDS (9.7-12.2) H 08/28/17 13:23 INR 1.2 08/28/17 13:23 APTT 33 SECONDS (21-34) 08/28/17 13:23 - Constitutional Appears: Non-toxic, Chronically Ill - Head Exam Head Exam: NORMOCEPHALIC - Eye Exam Eye Exam: absent: Normal appearance, Periorbital tenderness, Scleral icterus Pupil Exam: absent: NORMAL ACCOMODATION - ENT Exam ENT Exam: Mucous Membranes Dry - Neck Exam Neck Exam: absent: Lymphadenopathy - Respiratory Exam Respiratory Exam: Decreased Breath Sounds - Cardiovascular Exam Cardiovascular Exam: REGULAR RHYTHM - GI/Abdominal Exam GI & Abdominal Exam: Distended, Soft - Rectal Exam Rectal Exam: Deferred - Exam Exam: NORMAL INSPECTION External exam: NORMAL EXTERNAL EXAM Speculum exam: Cervical Discharge Assessment and Plan (1) CN III palsy, right eye Status: Acute (2) Headache Status: Acute (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
--- NOTE | 2017-08-29 18:34 | CP.PCM.HP ---
Past Patient History - Infectious Disease Hx of Infectious Diseases: None - Past Medical History & Family History Past Medical History?: Yes - Past Social History Smoking Status: Never Smoked - CARDIAC Hx Hypercholesterolemia: Yes Hx Hypertension: Yes - PULMONARY Hx Respiratory Disorders: No - NEUROLOGICAL Hx Neurological Disorder: Yes Hx Dizziness: Yes - HEENT Hx HEENT Problems: No Other/Comment: RIGHT PTOSIS DOUBLE VISION - RENAL Hx Chronic Kidney Disease: No - ENDOCRINE/METABOLIC Hx Hypothyroidism: Yes - HEMATOLOGICAL/ONCOLOGICAL Hx Human Immunodeficiency Virus (HIV): Yes - INTEGUMENTARY Hx Dermatological Problems: No - MUSCULOSKELETAL/RHEUMATOLOGICAL Hx Musculoskeletal Disorders: No Hx Falls: No - GASTROINTESTINAL Hx Gastritis: Yes - GENITOURINARY/GYNECOLOGICAL Hx Genitourinary Disorders: No - PSYCHIATRIC Hx Substance Use: No - SURGICAL HISTORY Hx Surgeries: Yes Hx Cardiac Catheterization: Yes - ANESTHESIA Hx Anesthesia: Yes Hx Anesthesia Reactions: No Hx Malignant Hyperthermia: No Has any member of the family had a problem w/ anesthesia?: No Meds Allergies/Adverse Reactions: Allergies Allergy/AdvReac Type Severity Reaction Status Date / Time No Known Allergies Allergy Verified 08/28/17 10:36 Physical Exam - Constitutional Appears: Well - Head Exam Head Exam: ATRAUMATIC, NORMAL INSPECTION, NORMOCEPHALIC - Eye Exam Eye Exam: EOMI, Normal appearance, PERRL Pupil Exam: NORMAL ACCOMODATION, PERRL - ENT Exam ENT Exam: Mucous Membranes Moist, Normal Exam - Neck Exam Neck exam: Positive for: Normal Inspection - Respiratory Exam Respiratory Exam: Decreased Breath Sounds - Cardiovascular Exam Cardiovascular Exam: REGULAR RHYTHM, +S1, +S2 - GI/Abdominal Exam GI & Abdominal Exam: Diminished Bowel Sounds, Soft - Rectal Exam Rectal Exam: Deferred Results - Vital Signs Recent Vital Signs: Last Vital Signs Temp 98.5 F 08/29/17 16:29 Pulse 70 08/29/17 16:29 Resp 20 08/29/17 16:29 BP 126/72 08/29/17 16:29 Pulse Ox 95 08/29/17 16:29 - Labs Result Diagrams: 08/28/17 13:23 08/28/17 13:23 Labs: Laboratory Results - last 24 hr 08/28/17 08/29/17 08/29/17 22:57 08:22 08:22 Triglycerides 229 H Cholesterol 97 LDL Cholesterol Direct 31 HDL Cholesterol 16 L Vitamin B12 986 H Folate > 20.0 Procalcitonin Free T4 0.86 TSH 3rd Generation 1.92 RPR Influenza Typ A,B (EIA) Negative for flu a/b 08/29/17 08/29/17 08:22 08:22 Triglycerides Cholesterol LDL Cholesterol Direct HDL Cholesterol Vitamin B12 Folate Procalcitonin 0.70 H Free T4 TSH 3rd Generation RPR Nonreactive Influenza Typ A,B (EIA)
--- NOTE | 2017-08-29 23:15 | CARD ---
APPROVED REPORT EKG Measurement Heart [id number] MA [id number] [id number] <Conclusion> Normal sinus rhythm Incomplete right bundle branch block Septal infarct, age undetermined Abnormal ECG
[2017-08-30] MEDS: Sodium Chloride 0.9% 1,000 ML IV SCH ×4 (02:15→18:52)
[2017-08-30] MEDS: Tmp-Smz 800 mg-160 mg DS Tab PO SCH ×2 (05:59→19:12)
[2017-08-30] MEDS: Levothyroxine 50 MCG TAB PO SCH (05:59)
[2017-08-30] MEDS: Acyclovir 500 MG in Sodium Chloride 0.9% 100 ML IV SCH ×2 (09:40→21:28)
[2017-08-30] MEDS: Pantoprazole 40 mg EC Tab PO SCH (09:41)
[2017-08-30] MEDS ORDERED: Pneumococcal 23-Valent Vaccine IM ONE (10:00)
--- NOTE | 2017-08-30 17:55 | CP.PCM.PN ---
Subjective - Date & Time of Evaluation Date of Evaluation: 08/30/17 Time of Evaluation: 08:20 - Subjective Subjective: clinically same Objective - Vital Signs/Intake and Output Vital Signs (last 24 hours): Temp Pulse Resp BP Pulse Ox 98.7 F 79 20 177/91 H 96 08/30/17 16:00 08/30/17 16:00 08/30/17 16:00 08/30/17 16:00 08/30/17 16:00 Intake and Output: 08/30/17 08/30/17 06:59 18:59 Intake Total 1040 1000 Output Total 1000 Balance 40 1000 - Medications Medications: Current Medications Atenolol (Tenormin) 25 mg PO DAILY [facility] Last Admin: 08/30/17 09:41 Dose: 25 mg Darunavir (Prezista) 600 mg PO DAILY [facility] Last Admin: 08/30/17 09:41 Dose: 600 mg Dexamethasone (Decadron Inj) 10 mg IVP Q8 [facility] Last Admin: 08/30/17 14:05 Dose: 10 mg Dolutegravir Sodium (Tivicay) 50 mg PO DAILY [facility] Last Admin: 08/30/17 09:41 Dose: 50 mg Gabapentin (Neurontin) 600 mg PO HS [facility] Last Admin: 08/29/17 21:29 Dose: 600 mg Heparin Sodium (Porcine) (Heparin) 5,000 units SC Q12 [facility] Last Admin: 08/30/17 09:41 Dose: 5,000 units Hydrochlorothiazide (Hydrodiuril) 25 mg PO DAILY [facility] Last Admin: 08/30/17 09:41 Dose: 25 mg Acyclovir 500 mg/ Sodium (Chloride) 100 mls @ 100 mls/hr IV Q12H [facility] Last Admin: 08/30/17 09:40 Dose: 100 mls/hr Ceftriaxone Sodium 1 gm/ (Sodium Chloride) 100 mls @ 100 mls/hr IVPB Q12H [facility] Last Admin: 08/30/17 07:01 Dose: 100 mls/hr Sodium Chloride (Sodium Chloride 0.9%) 1,000 mls @ 100 mls/hr IV .Q10H [facility] Last Admin: 08/30/17 12:32 Dose: Not Given Latanoprost (Xalatan Opht) 0 ml OD HS [facility] Last Admin: 08/29/17 21:31 Dose: 2.5 ml Levothyroxine Sodium (Synthroid) 50 mcg PO DAILY@0630 [facility] Last Admin: 08/30/17 05:59 Dose: 50 mcg Losartan Potassium (Cozaar) 100 mg PO DAILY [facility] Last Admin: 08/30/17 09:41 Dose: 100 mg Pantoprazole Sodium (Protonix Ec Tab) 40 mg PO DAILY [facility] Last Admin: 08/30/17 09:41 Dose: 40 mg Ritonavir (Norvir) 100 mg PO DAILY [facility] Last Admin: 08/30/17 09:41 Dose: 100 mg Rosuvastatin Calcium (Crestor) 10 mg PO HS [facility] Last Admin: 08/29/17 21:29 Dose: 10 mg Trimethoprim/Sulfamethoxazole (Bactrim Ds Tab) 1 tab PO Q12H [facility] Last Admin: 08/30/17 05:59 Dose: 1 tab - Labs Labs: 08/28/17 13:23 08/28/17 13:23 PT 13.5 SECONDS (9.7-12.2) H 08/28/17 13:23 INR 1.2 08/28/17 13:23 APTT 33 SECONDS (21-34) 08/28/17 13:23 - Constitutional Appears: Well - Head Exam Head Exam: ATRAUMATIC, NORMAL INSPECTION, NORMOCEPHALIC - Eye Exam Eye Exam: EOMI, Normal appearance, PERRL Pupil Exam: NORMAL ACCOMODATION, PERRL - ENT Exam ENT Exam: Mucous Membranes Moist, Normal Exam - Neck Exam Neck Exam: Full ROM, Normal Inspection. absent: Lymphadenopathy - Respiratory Exam Respiratory Exam: Decreased Breath Sounds - Cardiovascular Exam Cardiovascular Exam: REGULAR RHYTHM, +S1, +S2 - GI/Abdominal Exam GI & Abdominal Exam: Soft, Diminished Bowel Sounds - Rectal Exam Rectal Exam: Deferred
[2017-08-30] MEDS: Latanoprost 2.5 ml Opht Soln OD SCH (21:27)
[2017-08-31] MEDS: Levothyroxine 50 MCG TAB PO SCH (06:18)
[2017-08-31] MEDS: Tmp-Smz 800 mg-160 mg DS Tab PO SCH ×2 (06:18→18:26)
[2017-08-31] MEDS: Sodium Chloride 0.9% 1,000 ML IV SCH ×3 (08:43→23:09)
[2017-08-31] MEDS: Pantoprazole 40 mg EC Tab PO SCH (09:40)
[2017-08-31] MEDS: Acyclovir 500 MG in Sodium Chloride 0.9% 100 ML IV SCH ×2 (09:46→22:41)
--- NOTE | 2017-08-31 13:34 | CP.PCM.PN ---
Subjective - Date & Time of Evaluation Date of Evaluation: 08/31/17 Time of Evaluation: 08:20 - Subjective Subjective: clinically same Objective - Vital Signs/Intake and Output Vital Signs (last 24 hours): Temp Pulse Resp BP Pulse Ox 98.9 F 67 20 142/67 95 08/31/17 08:26 08/31/17 08:26 08/31/17 08:26 08/31/17 08:26 08/31/17 08:26 Intake and Output: 08/31/17 08/31/17 06:59 18:59 Intake Total 1040 Output Total 600 Balance 440 - Medications Medications: Current Medications Atenolol (Tenormin) 25 mg PO DAILY [facility] Last Admin: 08/31/17 09:42 Dose: 25 mg Darunavir (Prezista) 600 mg PO DAILY [facility] Last Admin: 08/31/17 09:41 Dose: 600 mg Dexamethasone (Decadron Inj) 10 mg IVP Q8 [facility] Last Admin: 08/31/17 06:17 Dose: 10 mg Dolutegravir Sodium (Tivicay) 50 mg PO DAILY [facility] Last Admin: 08/31/17 09:41 Dose: 50 mg Gabapentin (Neurontin) 600 mg PO HS [facility] Last Admin: 08/30/17 21:28 Dose: 600 mg Heparin Sodium (Porcine) (Heparin) 5,000 units SC Q12 [facility] Last Admin: 08/31/17 09:42 Dose: 5,000 units Hydrochlorothiazide (Hydrodiuril) 25 mg PO DAILY [facility] Last Admin: 08/31/17 09:41 Dose: 25 mg Acyclovir 500 mg/ Sodium (Chloride) 100 mls @ 100 mls/hr IV Q12H [facility] Last Admin: 08/31/17 09:46 Dose: 100 mls/hr Ceftriaxone Sodium 1 gm/ (Sodium Chloride) 100 mls @ 100 mls/hr IVPB Q12H [facility] Last Admin: 08/31/17 08:39 Dose: 100 mls/hr Sodium Chloride (Sodium Chloride 0.9%) 1,000 mls @ 100 mls/hr IV .Q10H [facility] Last Admin: 08/31/17 08:43 Dose: 100 mls/hr Latanoprost (Xalatan Opht) 0 ml OD HS [facility] Last Admin: 08/30/17 21:27 Dose: 2.5 ml Levothyroxine Sodium (Synthroid) 50 mcg PO DAILY@0630 [facility] Last Admin: 08/31/17 06:18 Dose: 50 mcg Losartan Potassium (Cozaar) 100 mg PO DAILY [facility] Last Admin: 08/31/17 09:42 Dose: 100 mg Pantoprazole Sodium (Protonix Ec Tab) 40 mg PO DAILY [facility] Last Admin: 08/31/17 09:40 Dose: 40 mg Ritonavir (Norvir) 100 mg PO DAILY [facility] Last Admin: 08/31/17 09:41 Dose: 100 mg Rosuvastatin Calcium (Crestor) 10 mg PO HS [facility] Last Admin: 08/30/17 21:28 Dose: 10 mg Trimethoprim/Sulfamethoxazole (Bactrim Ds Tab) 1 tab PO Q12H [facility] Last Admin: 08/31/17 06:18 Dose: 1 tab - Labs Labs: 08/28/17 13:23 08/28/17 13:23 PT 13.5 SECONDS (9.7-12.2) H 08/28/17 13:23 INR 1.2 08/28/17 13:23 APTT 33 SECONDS (21-34) 08/28/17 13:23 - Constitutional Appears: Well - Head Exam Head Exam: ATRAUMATIC, NORMAL INSPECTION, NORMOCEPHALIC - Eye Exam Eye Exam: EOMI, Normal appearance, PERRL Pupil Exam: NORMAL ACCOMODATION, PERRL - ENT Exam ENT Exam: Mucous Membranes Moist, Normal Exam - Neck Exam Neck Exam: Full ROM, Normal Inspection. absent: Lymphadenopathy - Respiratory Exam Respiratory Exam: Decreased Breath Sounds - Cardiovascular Exam Cardiovascular Exam: REGULAR RHYTHM, +S1, +S2 - GI/Abdominal Exam GI & Abdominal Exam: Soft, Diminished Bowel Sounds - Rectal Exam Rectal Exam: Deferred
--- NOTE | 2017-08-31 17:12 | CP.PCM.PN ---
Subjective - Date & Time of Evaluation Date of Evaluation: 08/31/17 Time of Evaluation: 08:00 - Subjective Subjective: improving slowly iv rx for pneumonia in progress Objective - Vital Signs/Intake and Output Vital Signs (last 24 hours): Temp Pulse Resp BP Pulse Ox 98.1 F 60 20 157/83 H 97 08/31/17 15:04 08/31/17 15:04 08/31/17 15:04 08/31/17 15:04 08/31/17 15:04 Intake and Output: 08/31/17 08/31/17 06:59 18:59 Intake Total 1040 1500 Output Total 600 Balance 440 1500 - Medications Medications: Current Medications Atenolol (Tenormin) 25 mg PO DAILY [facility] Last Admin: 08/31/17 09:42 Dose: 25 mg Darunavir (Prezista) 600 mg PO DAILY [facility] Last Admin: 08/31/17 09:41 Dose: 600 mg Dexamethasone (Decadron Inj) 10 mg IVP Q8 [facility] Last Admin: 08/31/17 14:02 Dose: 10 mg Dolutegravir Sodium (Tivicay) 50 mg PO DAILY [facility] Last Admin: 08/31/17 09:41 Dose: 50 mg Gabapentin (Neurontin) 600 mg PO HS [facility] Last Admin: 08/30/17 21:28 Dose: 600 mg Heparin Sodium (Porcine) (Heparin) 5,000 units SC Q12 [facility] Last Admin: 08/31/17 09:42 Dose: 5,000 units Hydrochlorothiazide (Hydrodiuril) 25 mg PO DAILY [facility] Last Admin: 08/31/17 09:41 Dose: 25 mg Acyclovir 500 mg/ Sodium (Chloride) 100 mls @ 100 mls/hr IV Q12H [facility] Last Admin: 08/31/17 09:46 Dose: 100 mls/hr Ceftriaxone Sodium 1 gm/ (Sodium Chloride) 100 mls @ 100 mls/hr IVPB Q12H [facility] Last Admin: 08/31/17 08:39 Dose: 100 mls/hr Sodium Chloride (Sodium Chloride 0.9%) 1,000 mls @ 100 mls/hr IV .Q10H [facility] Last Admin: 08/31/17 08:43 Dose: 100 mls/hr Latanoprost (Xalatan Opht) 0 ml OD HS [facility] Last Admin: 08/30/17 21:27 Dose: 2.5 ml Levothyroxine Sodium (Synthroid) 50 mcg PO DAILY@0630 [facility] Last Admin: 08/31/17 06:18 Dose: 50 mcg Losartan Potassium (Cozaar) 100 mg PO DAILY [facility] Last Admin: 08/31/17 09:42 Dose: 100 mg Pantoprazole Sodium (Protonix Ec Tab) 40 mg PO DAILY [facility] Last Admin: 08/31/17 09:40 Dose: 40 mg Ritonavir (Norvir) 100 mg PO DAILY [facility] Last Admin: 08/31/17 09:41 Dose: 100 mg Rosuvastatin Calcium (Crestor) 10 mg PO HS [facility] Last Admin: 08/30/17 21:28 Dose: 10 mg Trimethoprim/Sulfamethoxazole (Bactrim Ds Tab) 1 tab PO Q12H [facility] Last Admin: 08/31/17 06:18 Dose: 1 tab - Labs Labs: 08/28/17 13:23 08/28/17 13:23 PT 13.5 SECONDS (9.7-12.2) H 08/28/17 13:23 INR 1.2 08/28/17 13:23 APTT 33 SECONDS (21-34) 08/28/17 13:23 - Constitutional Appears: Non-toxic, Chronically Ill - Head Exam Head Exam: NORMOCEPHALIC - Eye Exam Eye Exam: Normal appearance, PERRL. absent: Scleral icterus - ENT Exam ENT Exam: Mucous Membranes Dry, Normal External Ear Exam - Neck Exam Neck Exam: absent: Lymphadenopathy - Respiratory Exam Respiratory Exam: Decreased Breath Sounds, Clear to Ausculation Bilateral - Cardiovascular Exam Cardiovascular Exam: REGULAR RHYTHM - GI/Abdominal Exam GI & Abdominal Exam: Distended, Soft - Rectal Exam Rectal Exam: Deferred - Exam Exam: NORMAL INSPECTION - Back Exam Back Exam: absent: CVA tenderness (L), CVA tenderness (R) - Neurological Exam Neurological Exam: Alert, Awake. 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
[2017-08-31] MEDS: Latanoprost 2.5 ml Opht Soln OD SCH (22:38)
[2017-09-01 05:34] LABS: TB ANTIGEN MINUS NIL <0.00 IU/mL
[2017-09-01] MEDS: Levothyroxine 50 MCG TAB PO SCH (05:50)
[2017-09-01] MEDS: Tmp-Smz 800 mg-160 mg DS Tab PO SCH ×2 (06:00→18:26)
[2017-09-01] MEDS: Acyclovir 500 MG in Sodium Chloride 0.9% 100 ML IV SCH ×2 (09:34→22:01)
[2017-09-01] MEDS: Magnesium Oxide 400 mg Tab UD PO SCH ×2 (09:36→18:26)
[2017-09-01] MEDS: Pantoprazole 40 mg EC Tab PO SCH (09:37)
[2017-09-01 12:23] LABS: ALB/GLOB RATIO 0.9 (1.0-2.1); ALBUMIN 3.3 g/dL (3.5-5.0)
--- NOTE | 2017-09-01 12:52 | CP.PCM.PN ---
Subjective - Date & Time of Evaluation Date of Evaluation: 09/01/17 Time of Evaluation: 12:52 - Subjective Subjective: Mr. Avilez was seen and examined at the bedside. He is alert, oriented with claims of mild headache in his left temporal area radiating to the left side of the face. He further describe as mild tenderness. Sensation is asymmetrical with less sensation in his right side of the face. He remains with right eye ptosis.He is able to follow simple commands. There was no untoward events overnight. Objective - Vital Signs/Intake and Output Vital Signs (last 24 hours): Temp Pulse Resp BP Pulse Ox 98.4 F 58 L 20 150/76 95 09/01/17 08:03 09/01/17 08:03 09/01/17 08:03 09/01/17 08:03 09/01/17 08:03 Intake and Output: 09/01/17 09/01/17 06:59 18:59 Intake Total 1920 Output Total 1200 Balance 720 - Medications Medications: Current Medications Atenolol (Tenormin) 25 mg PO DAILY [facility] Last Admin: 09/01/17 09:46 Dose: 25 mg Darunavir (Prezista) 600 mg PO DAILY [facility] Last Admin: 09/01/17 09:39 Dose: 600 mg Dexamethasone (Decadron Inj) 10 mg IVP Q8 [facility] Last Admin: 09/01/17 05:50 Dose: 10 mg Dolutegravir Sodium (Tivicay) 50 mg PO DAILY [facility] Last Admin: 09/01/17 09:39 Dose: 50 mg Gabapentin (Neurontin) 600 mg PO HS [facility] Last Admin: 08/31/17 22:39 Dose: 600 mg Hydrochlorothiazide (Hydrodiuril) 25 mg PO DAILY [facility] Last Admin: 09/01/17 09:46 Dose: 25 mg Acyclovir 500 mg/ Sodium (Chloride) 100 mls @ 100 mls/hr IV Q12H [facility] Last Admin: 09/01/17 09:34 Dose: 100 mls/hr Ceftriaxone Sodium 1 gm/ (Sodium Chloride) 100 mls @ 100 mls/hr IVPB Q12H [facility] Last Admin: 09/01/17 06:50 Dose: 100 mls/hr Sodium Chloride (Sodium Chloride 0.9%) 1,000 mls @ 100 mls/hr IV .Q10H [facility] Last Admin: 08/31/17 23:09 Dose: Not Given Latanoprost (Xalatan Opht) 0 ml OD HS [facility] Last Admin: 08/31/17 22:38 Dose: 2.5 ml Levothyroxine Sodium (Synthroid) 50 mcg PO DAILY@0630 [facility] Last Admin: 09/01/17 05:50 Dose: 50 mcg Losartan Potassium (Cozaar) 100 mg PO DAILY [facility] Last Admin: 09/01/17 09:37 Dose: 100 mg Magnesium Oxide (Mag-Ox) 400 mg PO BID [facility] Last Admin: 09/01/17 09:36 Dose: 400 mg Pantoprazole Sodium (Protonix Ec Tab) 40 mg PO DAILY [facility] Last Admin: 09/01/17 09:37 Dose: 40 mg Ritonavir (Norvir) 100 mg PO DAILY [facility] Last Admin: 09/01/17 09:39 Dose: 100 mg Rosuvastatin Calcium (Crestor) 10 mg PO HS [facility] Last Admin: 08/31/17 22:40 Dose: 10 mg Trimethoprim/Sulfamethoxazole (Bactrim Ds Tab) 1 tab PO Q12H [facility] Last Admin: 09/01/17 06:00 Dose: 1 tab - Labs Labs: 08/28/17 13:23 09/01/17 11:49 PT 13.5 SECONDS (9.7-12.2) H 08/28/17 13:23 INR 1.2 08/28/17 13:23 APTT 33 SECONDS (21-34) 08/28/17 13:23 - Constitutional Appears: No Acute Distress - Head Exam Head Exam: NORMAL INSPECTION - Neurological Exam Neurological Exam: Alert, Awake Neuro motor strength exam: Left Upper Extremity: 5, Right Upper Extremity: 5, Left Lower Extremity: 5, Right Lower Extremity: 5 Additional comments: Neurological unchanged from previous examination. Assessment and Plan (1) CN III palsy, right eye Assessment & Plan: Case discussed with Dr. Rosales, continue all current medical regimen. Recommend CTA of the head and neck, awaiting for creatinine to normalize. Pending HIV results. Status: Acute
[2017-09-01] MEDS: Sodium Chloride 0.9% 1,000 ML IV SCH (14:03)
--- NOTE | 2017-09-01 15:13 | CP.PCM.PN ---
Subjective - Date & Time of Evaluation Date of Evaluation: 09/01/17 Time of Evaluation: 09:00 - Subjective Subjective: iv rx for pneumonia in progress await neuro eval and t cells Objective - Vital Signs/Intake and Output Vital Signs (last 24 hours): Temp Pulse Resp BP Pulse Ox 98.4 F 58 L 20 150/76 95 09/01/17 08:03 09/01/17 08:03 09/01/17 08:03 09/01/17 08:03 09/01/17 08:03 Intake and Output: 09/01/17 09/01/17 06:59 18:59 Intake Total 1920 700 Output Total 1200 Balance 720 700 - Medications Medications: Current Medications Atenolol (Tenormin) 25 mg PO DAILY [facility] Last Admin: 09/01/17 09:46 Dose: 25 mg Darunavir (Prezista) 600 mg PO DAILY [facility] Last Admin: 09/01/17 09:39 Dose: 600 mg Dexamethasone (Decadron Inj) 10 mg IVP Q8 [facility] Last Admin: 09/01/17 13:59 Dose: 10 mg Dolutegravir Sodium (Tivicay) 50 mg PO DAILY [facility] Last Admin: 09/01/17 09:39 Dose: 50 mg Gabapentin (Neurontin) 600 mg PO HS [facility] Last Admin: 08/31/17 22:39 Dose: 600 mg Hydrochlorothiazide (Hydrodiuril) 25 mg PO DAILY [facility] Last Admin: 09/01/17 09:46 Dose: 25 mg Acyclovir 500 mg/ Sodium (Chloride) 100 mls @ 100 mls/hr IV Q12H [facility] Last Admin: 09/01/17 09:34 Dose: 100 mls/hr Ceftriaxone Sodium 1 gm/ (Sodium Chloride) 100 mls @ 100 mls/hr IVPB Q12H [facility] Last Admin: 09/01/17 06:50 Dose: 100 mls/hr Sodium Chloride (Sodium Chloride 0.9%) 1,000 mls @ 100 mls/hr IV .Q10H [facility] Last Admin: 09/01/17 14:03 Dose: 100 mls/hr Latanoprost (Xalatan Opht) 0 ml OD HS [facility] Last Admin: 08/31/17 22:38 Dose: 2.5 ml Levothyroxine Sodium (Synthroid) 50 mcg PO DAILY@0630 [facility] Last Admin: 09/01/17 05:50 Dose: 50 mcg Losartan Potassium (Cozaar) 100 mg PO DAILY [facility] Last Admin: 09/01/17 09:37 Dose: 100 mg Magnesium Oxide (Mag-Ox) 400 mg PO BID [facility] Last Admin: 09/01/17 09:36 Dose: 400 mg Pantoprazole Sodium (Protonix Ec Tab) 40 mg PO DAILY [facility] Last Admin: 09/01/17 09:37 Dose: 40 mg Ritonavir (Norvir) 100 mg PO DAILY [facility] Last Admin: 09/01/17 09:39 Dose: 100 mg Rosuvastatin Calcium (Crestor) 10 mg PO HS [facility] Last Admin: 08/31/17 22:40 Dose: 10 mg Trimethoprim/Sulfamethoxazole (Bactrim Ds Tab) 1 tab PO Q12H [facility] Last Admin: 09/01/17 06:00 Dose: 1 tab - Labs Labs: 08/28/17 13:23 09/01/17 11:49 PT 13.5 SECONDS (9.7-12.2) H 08/28/17 13:23 INR 1.2 08/28/17 13:23 APTT 33 SECONDS (21-34) 08/28/17 13:23 - Constitutional Appears: Non-toxic, Chronically Ill - Head Exam Head Exam: NORMOCEPHALIC - Eye Exam Eye Exam: PERRL - ENT Exam ENT Exam: Mucous Membranes Dry - Neck Exam Neck Exam: absent: Lymphadenopathy - Respiratory Exam Respiratory Exam: Decreased Breath Sounds - Cardiovascular Exam Cardiovascular Exam: REGULAR RHYTHM - GI/Abdominal Exam GI & Abdominal Exam: Distended, Soft - Rectal Exam Rectal Exam: Deferred - Exam Exam: NORMAL INSPECTION Assessment and Plan (1) CN III palsy, right eye Status: Acute (2) Headache Status: Acute (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
--- NOTE | 2017-09-01 16:49 | CP.PCM.PN ---
Subjective - Date & Time of Evaluation Date of Evaluation: 09/01/17 Time of Evaluation: 08:00 - Subjective Subjective: clinically same Objective - Vital Signs/Intake and Output Vital Signs (last 24 hours): Temp Pulse Resp BP Pulse Ox 97.2 F L 68 20 153/80 H 97 09/01/17 16:00 09/01/17 16:00 09/01/17 16:00 09/01/17 16:00 09/01/17 16:00 Intake and Output: 09/01/17 09/01/17 06:59 18:59 Intake Total 1920 700 Output Total 1200 Balance 720 700 - Medications Medications: Current Medications Atenolol (Tenormin) 25 mg PO DAILY [facility] Last Admin: 09/01/17 09:46 Dose: 25 mg Darunavir (Prezista) 600 mg PO DAILY [facility] Last Admin: 09/01/17 09:39 Dose: 600 mg Dexamethasone (Decadron Inj) 10 mg IVP Q8 [facility] Last Admin: 09/01/17 13:59 Dose: 10 mg Dolutegravir Sodium (Tivicay) 50 mg PO DAILY [facility] Last Admin: 09/01/17 09:39 Dose: 50 mg Gabapentin (Neurontin) 600 mg PO HS [facility] Last Admin: 08/31/17 22:39 Dose: 600 mg Hydrochlorothiazide (Hydrodiuril) 25 mg PO DAILY [facility] Last Admin: 09/01/17 09:46 Dose: 25 mg Acyclovir 500 mg/ Sodium (Chloride) 100 mls @ 100 mls/hr IV Q12H [facility] Last Admin: 09/01/17 09:34 Dose: 100 mls/hr Ceftriaxone Sodium 1 gm/ (Sodium Chloride) 100 mls @ 100 mls/hr IVPB Q12H [facility] Last Admin: 09/01/17 06:50 Dose: 100 mls/hr Sodium Chloride (Sodium Chloride 0.9%) 1,000 mls @ 100 mls/hr IV .Q10H [facility] Last Admin: 09/01/17 14:03 Dose: 100 mls/hr Latanoprost (Xalatan Opht) 0 ml OD HS [facility] Last Admin: 08/31/17 22:38 Dose: 2.5 ml Levothyroxine Sodium (Synthroid) 50 mcg PO DAILY@0630 [facility] Last Admin: 09/01/17 05:50 Dose: 50 mcg Losartan Potassium (Cozaar) 100 mg PO DAILY [facility] Last Admin: 09/01/17 09:37 Dose: 100 mg Magnesium Oxide (Mag-Ox) 400 mg PO BID [facility] Last Admin: 09/01/17 09:36 Dose: 400 mg Pantoprazole Sodium (Protonix Ec Tab) 40 mg PO DAILY [facility] Last Admin: 09/01/17 09:37 Dose: 40 mg Ritonavir (Norvir) 100 mg PO DAILY [facility] Last Admin: 09/01/17 09:39 Dose: 100 mg Rosuvastatin Calcium (Crestor) 10 mg PO HS [facility] Last Admin: 08/31/17 22:40 Dose: 10 mg Trimethoprim/Sulfamethoxazole (Bactrim Ds Tab) 1 tab PO Q12H [facility] Last Admin: 09/01/17 06:00 Dose: 1 tab - Labs Labs: 08/28/17 13:23 09/01/17 11:49 PT 13.5 SECONDS (9.7-12.2) H 08/28/17 13:23 INR 1.2 08/28/17 13:23 APTT 33 SECONDS (21-34) 08/28/17 13:23 - Constitutional Appears: Well - Head Exam Head Exam: ATRAUMATIC, NORMAL INSPECTION, NORMOCEPHALIC - Eye Exam Eye Exam: EOMI, Normal appearance, PERRL Pupil Exam: NORMAL ACCOMODATION, PERRL - ENT Exam ENT Exam: Mucous Membranes Moist, Normal Exam - Neck Exam Neck Exam: Full ROM, Normal Inspection. absent: Lymphadenopathy - Respiratory Exam Respiratory Exam: Decreased Breath Sounds - Cardiovascular Exam Cardiovascular Exam: REGULAR RHYTHM, +S1, +S2 - GI/Abdominal Exam GI & Abdominal Exam: Soft, Diminished Bowel Sounds - Rectal Exam Rectal Exam: Deferred
[2017-09-01] MEDS: Latanoprost 2.5 ml Opht Soln OD SCH (21:53)
[2017-09-02 00:39] VITALS: PULSE 60
[2017-09-02] MEDS: Sodium Chloride 0.9% 1,000 ML IV SCH (03:00)
[2017-09-02] MEDS: Levothyroxine 50 MCG TAB PO SCH (05:54)
[2017-09-02] MEDS: Tmp-Smz 800 mg-160 mg DS Tab PO SCH (06:04)
[2017-09-02] MEDS: Acyclovir 500 MG in Sodium Chloride 0.9% 100 ML IV SCH (09:55)
[2017-09-02] MEDS: Magnesium Oxide 400 mg Tab UD PO SCH (09:56)
[2017-09-02] MEDS: Pantoprazole 40 mg EC Tab PO SCH (09:56)
[2017-09-02 10:48] LABS: % CD4 (T HELPER CELL) 7 Percent (30-61); % CD8 (SUPPRESSOR T CELL) 44 Percent (12-42); ABSOLUTE CD3 CELLS 994 Cells/mcL (840-3060); ABSOLUTE CD4 CELLS 134 Cells/mcL (490-1740); ABSOLUTE CD8 CELLS 856 Cells/mcL (180-1170); ABSOLUTE LYMPHOCYTES 1931 Cells/mcL (850-3900); HELPER/SUPPRESSOR RATIO 0.16 Ratio (0.86-5.00)
--- NOTE | 2017-09-02 13:29 | CP.PCM.PN ---
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 He is well today, with no headache, but continues. He is on acyclovir and antibiotics. However, his palsy remains. On exam: Neurological exam is normal except for left third nerve palsy. Rest of cranial nerves are normal. Objective - Vital Signs/Intake and Output Vital Signs (last 24 hours): Temp Pulse Resp BP Pulse Ox 97.7 F 60 12 146/82 95 09/02/17 08:00 09/02/17 08:00 09/02/17 08:00 09/02/17 08:00 09/02/17 08:00 Intake and Output: 09/02/17 09/02/17 06:59 18:59 Intake Total 2220 Output Total 1950 Balance 270 - Medications Medications: Current Medications Atenolol (Tenormin) 25 mg PO DAILY [facility] Last Admin: 09/02/17 09:56 Dose: 25 mg Darunavir (Prezista) 600 mg PO DAILY [facility] Last Admin: 09/02/17 09:56 Dose: 600 mg Dexamethasone (Decadron Inj) 10 mg IVP Q8 [facility] Last Admin: 09/02/17 05:54 Dose: 10 mg Dolutegravir Sodium (Tivicay) 50 mg PO DAILY [facility] Last Admin: 09/02/17 09:56 Dose: 50 mg Gabapentin (Neurontin) 600 mg PO HS [facility] Last Admin: 09/01/17 21:54 Dose: 600 mg Hydrochlorothiazide (Hydrodiuril) 25 mg PO DAILY [facility] Last Admin: 09/02/17 09:56 Dose: 25 mg Acyclovir 500 mg/ Sodium (Chloride) 100 mls @ 100 mls/hr IV Q12H [facility] Last Admin: 09/02/17 09:55 Dose: 100 mls/hr Ceftriaxone Sodium 1 gm/ (Sodium Chloride) 100 mls @ 100 mls/hr IVPB Q12H [facility] Last Admin: 09/02/17 07:03 Dose: 100 mls/hr Latanoprost (Xalatan Opht) 0 ml OD HS [facility] Last Admin: 09/01/17 21:53 Dose: 2.5 ml Levothyroxine Sodium (Synthroid) 50 mcg PO DAILY@0630 [facility] Last Admin: 09/02/17 05:54 Dose: 50 mcg Losartan Potassium (Cozaar) 100 mg PO DAILY [facility] Last Admin: 09/02/17 09:56 Dose: 100 mg Magnesium Oxide (Mag-Ox) 400 mg PO BID [facility] Last Admin: 09/02/17 09:56 Dose: 400 mg Pantoprazole Sodium (Protonix Ec Tab) 40 mg PO DAILY [facility] Last Admin: 09/02/17 09:56 Dose: 40 mg Ritonavir (Norvir) 100 mg PO DAILY [facility] Last Admin: 09/02/17 09:56 Dose: 100 mg Rosuvastatin Calcium (Crestor) 10 mg PO HS [facility] Last Admin: 09/01/17 21:54 Dose: 10 mg Trimethoprim/Sulfamethoxazole (Bactrim Ds Tab) 1 tab PO Q12H [facility] Last Admin: 09/02/17 06:04 Dose: 1 tab - Labs Labs: 08/28/17 13:23 09/01/17 11:49 PT 13.5 SECONDS (9.7-12.2) H 08/28/17 13:23 INR 1.2 08/28/17 13:23 APTT 33 SECONDS (21-34) 08/28/17 13:23 Assessment and Plan - Assessment and Plan (Free Text) Assessment: 71 yr old male with herpetic neuralgia, with left third nerve and facial palsy. He has been on antibiotics for several days, and is now ready for discharge. Plan: 1. Continue acyclovir 800 mg bid 2. Continue neurontin at 900 mg qhs 3. Follow up in 2 months. 4. eye patch 5. Artificial tears.
[2017-09-02 15:59] VITALS: BP 173/85; RESP 20; TEMP 98.3; O2SAT 97
--- NOTE | 2017-09-02 16:18 | CP.PCM.PN ---
Subjective - Date & Time of Evaluation Date of Evaluation: 09/02/17 Time of Evaluation: 07:00 - Subjective Subjective: clinically same Objective - Vital Signs/Intake and Output Vital Signs (last 24 hours): Temp Pulse Resp BP Pulse Ox 98.3 F 60 20 173/85 H 97 09/02/17 15:58 09/02/17 15:58 09/02/17 15:58 09/02/17 15:58 09/02/17 15:58 Intake and Output: 09/02/17 09/02/17 06:59 18:59 Intake Total 2220 1250 Output Total 1950 Balance 270 1250 - Medications Medications: Current Medications Atenolol (Tenormin) 25 mg PO DAILY [facility] Last Admin: 09/02/17 09:56 Dose: 25 mg Darunavir (Prezista) 600 mg PO DAILY [facility] Last Admin: 09/02/17 09:56 Dose: 600 mg Dexamethasone (Decadron Inj) 10 mg IVP Q8 [facility] Last Admin: 09/02/17 14:04 Dose: 10 mg Dolutegravir Sodium (Tivicay) 50 mg PO DAILY [facility] Last Admin: 09/02/17 09:56 Dose: 50 mg Gabapentin (Neurontin) 600 mg PO HS [facility] Last Admin: 09/01/17 21:54 Dose: 600 mg Hydrochlorothiazide (Hydrodiuril) 25 mg PO DAILY [facility] Last Admin: 09/02/17 09:56 Dose: 25 mg Acyclovir 500 mg/ Sodium (Chloride) 100 mls @ 100 mls/hr IV Q12H [facility] Last Admin: 09/02/17 09:55 Dose: 100 mls/hr Ceftriaxone Sodium 1 gm/ (Sodium Chloride) 100 mls @ 100 mls/hr IVPB Q12H [facility] Last Admin: 09/02/17 07:03 Dose: 100 mls/hr Latanoprost (Xalatan Opht) 0 ml OD HS [facility] Last Admin: 09/01/17 21:53 Dose: 2.5 ml Levothyroxine Sodium (Synthroid) 50 mcg PO DAILY@0630 [facility] Last Admin: 09/02/17 05:54 Dose: 50 mcg Losartan Potassium (Cozaar) 100 mg PO DAILY [facility] Last Admin: 09/02/17 09:56 Dose: 100 mg Magnesium Oxide (Mag-Ox) 400 mg PO BID [facility] Last Admin: 09/02/17 09:56 Dose: 400 mg Pantoprazole Sodium (Protonix Ec Tab) 40 mg PO DAILY [facility] Last Admin: 09/02/17 09:56 Dose: 40 mg Ritonavir (Norvir) 100 mg PO DAILY [facility] Last Admin: 09/02/17 09:56 Dose: 100 mg Rosuvastatin Calcium (Crestor) 10 mg PO HS [facility] Last Admin: 09/01/17 21:54 Dose: 10 mg Trimethoprim/Sulfamethoxazole (Bactrim Ds Tab) 1 tab PO Q12H [facility] Last Admin: 09/02/17 06:04 Dose: 1 tab - Labs Labs: 08/28/17 13:23 09/01/17 11:49 PT 13.5 SECONDS (9.7-12.2) H 08/28/17 13:23 INR 1.2 08/28/17 13:23 APTT 33 SECONDS (21-34) 08/28/17 13:23 - Constitutional Appears: Well - Head Exam Head Exam: ATRAUMATIC, NORMAL INSPECTION, NORMOCEPHALIC - Eye Exam Eye Exam: EOMI, Normal appearance, PERRL Pupil Exam: NORMAL ACCOMODATION, PERRL - ENT Exam ENT Exam: Mucous Membranes Moist, Normal Exam - Neck Exam Neck Exam: Full ROM, Normal Inspection. absent: Lymphadenopathy - Respiratory Exam Respiratory Exam: Decreased Breath Sounds - Cardiovascular Exam Cardiovascular Exam: REGULAR RHYTHM, +S1, +S2 - GI/Abdominal Exam GI & Abdominal Exam: Soft, Diminished Bowel Sounds - Rectal Exam Rectal Exam: Deferred
== END 2017-09-02 17:44 | disposition home or self-care (01) | DRG 976 ==
LOC: C.ER 10:17 → C.9E 16:15 → C.3T 18:29 → OBSVTOIN 08-29 14:46
PROVIDERS: ADMIT Internal Medicine Nephrology; ATTEND Internal Medicine Nephrology
DX: B20 Human immunodeficiency virus [HIV] disease (principal); B02.21 Postherpetic geniculate ganglionitis; J18.9 Pneumonia, unspecified organism; H49.01 Third [oculomotor] nerve palsy, right eye; J06.9 Acute upper respiratory infection, unspecified; G20 Parkinson's disease; I10 Essential (primary) hypertension; E03.9 Hypothyroidism, unspecified; E78.00 Pure hypercholesterolemia, unspecified; F17.210 Nicotine dependence, cigarettes, uncomplicated; H53.2 Diplopia; G51.0 Bell's palsy; H02.401 Unspecified ptosis of right eyelid